=== PATIENT | female | born 1935 | race Caucasian/White ===

== ENCOUNTER 2016-03-27 03:31 | Inpatient (IN) | payer MEDICARE, OTHER ==
[2016-03-27] VITALS (18 sets, daily range): BP systolic 169–220; BP diastolic 62–116; PULSE 72–95; RESP 20–24; O2SAT 96–100
[~2016-03-27] VITALS: Ht 170.2 cm; Wt 84.2 kg
--- NOTE | 2016-03-27 03:29 | ED.REPORT ---
HPI-Stroke / CVA Mar 27, 2016 ED Provider: MD Joaquin This is a 80 year old female brought to the ED by EMS for change LOC that began 6 hours ago. Pt was found by her on the commode and was non-verbal, with right sided deficits. Last normal at 22:00. En route, GCS 13, blood pressure 104/78. History is limited due to patient condition. Code status: DNR Nursing Notes Stated Complaint: RIGHT SIDED WEAKNESS Nursing Notes Reviewed: Yes General Time Seen by Provider: 03:31 Chief Complaint Weakness Right-sided Hx Obtained From: Patient Arrived By: Ambulance Time last known well 22:00 Sudden in Onset?: Yes Symptom Duration: Since onset Progression Since Onset: Unchanged Pertinent Negative: Pt denies other symptoms Recent Healthcare: No recent doctor visit, No recent hospitalization Similar Sx Previous: No Risk Factors )( TPA Administration/Criteria Stroke Thrombolytic Therapy : TPA Administered Intravenously: No, not indicated Past Medical History Past Medical History Notes: DNR Ambulatory Status Independent Review of Systems Unable to Obtain ROS Patient condition (limited ) Constitutional: Denies: Chills, Fever Neurologic: Reports: Change LOC, Unable to speak, Weakness, Denies: Headache Complete sys rev & neg: except as marked. Physical Exam Initial Vital Signs Vital Signs (First) Date Time Temp Pulse Resp B/P Pulse Ox O2 Delivery O2 Flow Rate FiO2 03/27/16 03:45 37.1 88 21 181/116 99 Room Air 03/27/16 04:45 2.5 - Initial VS: Reviewed ENT: Mucous membranes moist, Conjunctiva normal, No scleral icterus Extremities: Vascular intact Skin: Warm, Dry, No cyanosis Psychiatric: Mood/affect normal, Behavior normal, Normal thought content General/Constitutional: Awake Head / Eyes: EOMI Neck: Supple, Full range of motion, No swelling, Non-tender, No carotid bruit Respiratory / Chest: Breath sounds NL, Breath sounds = bilat, No respiratory distress, No rales, No rhonchi, No wheezing Cardiovascular: Heart rate NL, Regular rhythm, Heart sounds NL, No murmurs, Peripheral circulation NL Neurologic: No motor deficits, No sensory deficits Mental Status: Positive: Somnolent (limited exam ) Interpretation & Diagnostics CT HEAD CONCLUSION:Intraparenchymal hemorrhage in the left temporoparietal region and with associated edema. There is some questionable focal hypodensity in the left cerebellum that could indicate changes of previous ischemia although subacute ischemia could appear similar. Mild cerebral/cerebellar atrophy and moderate chronic small vessel disease with no acute intracranial abnormality. Radiologist: Jovany Tenorio DO Lab Results Interpretation Result Diagram: 03/27/16 0401 03/27/16 0401 Test 03/27/16 04:01 03/27/16 05:25 White Blood Count 10.4th/mm3 (3.8-10.1) Red Blood Count 4.85mil/mm3 (3.90-5.20) Hemoglobin 13.8g/dL (12.0-15.6) Hematocrit 40.8% (35.0-46.0) Mean Corpuscular Volume 84.1fL (81-100) Mean Corpuscular Hemoglobin 28.5pg (27.0-35.0) Mean Corpuscular Hemoglobin Concent 33.8% (32.0-37.0) Red Cell Distribution Width 13.6% (12.3-15.4) Platelet Count 217bil/L (150-400) Neutrophils (%) (Auto) 81.9% (40-74) Lymphocytes (%) (Auto) 11.5% (14-46) Monocytes (%) (Auto) 4.4% (4-12) Eosinophils (%) (Auto) 1.7% (0-5) Basophils (%) (Auto) 0.2% (0-3) Prothrombin Time 10.7sec (8.1-12.5) Prothromb Time International Ratio 1.00ratio Activated Partial Thromboplast Time 26.6sec (22.8-33.0) Sodium Level 138mEq/L (134-144) Potassium Level 4.0mEq/L (3.5-5.2) Chloride Level 101mEq/L (97-108) Carbon Dioxide Level 23mmol/L (18-29) Blood Urea Nitrogen 13mg/dL (8-27) Creatinine 0.61mg/dL (0.57-1.00) Estimat Glomerular Filtration Rate 136mL/min (>59) Glucose Level 175mg/dL (60-99) Calcium Level 9.2mg/dL (8.5-10.1) Total Bilirubin 1.8mg/dL (0.0-1.2) Aspartate Amino Transf (AST/SGOT) 16U/L (0-50) Alanine Aminotransferase (ALT/SGPT) 14U/L (0-32) Alkaline Phosphatase 123U/L (25-165) Troponin T 0.010ug/L (0.0-0.011) Total Protein 7.6g/dL (6.4-8.4) Albumin 3.9g/dL (3.4-5.0) Lab values outside NL range: no clinical significance. ECG Interpretation ECG Interpretation: Minor non-specific ST changes Time: 05:02 Interpreted by: ED physician Normal ECG Interpretation: Normal rate Re-Eval/Medical Decision Med Decision/Clinical Course 72-year-old female presents after an apparent stroke, after being found on the toilet unable to speak and minimally responsive. She appeared to have some right-sided motor deficits and was transported by rescue. On arrival here, and the CT scan revealed left posterior parietal stroke bleeding variety, with some surrounding edema and a central mass. Accompanying the patient is a sign POLST form, requesting DO NOT RESUSCITATE status and allowing a natural . I contacted her , who is wheelchair-bound at home, and he confirms that is her wish. He will be able to come to the hospital later this afternoon. I advised him to notify family. She is admitted now with a left sided parenchymal bleed in the posteroparietal brain, diminished mental status, and mild right-sided deficits, but near complete aphasia. Blood pressure has been elevated and has responded initially to nicardipine, but she was switched to labetalol to avoid being on a constant drip and required ICU care. She was also given Keppra to prophylax against seizures. Transported in stable guarded condition. 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: Accepts admit Counseled Regarding: Diagnosis, Lab results, Need for follow-up, Need for admission Patient Discharge & Departure Impression: Primary Impression: Hemorrhagic stroke Additional Impression: Hypertension Disposition: ADMITTED TO HOSPITAL Discharge Condition All VS Reviewed: Yes Condition: Stable Crit Care Except Billable Proc Time Spent: 30-74 minutes Services Performed: Patient management by me, Time spent at bedside, Reviewing test results, Reviewing imaging, Discussing patient care, Documentation in record, Time with fam/surrogate Scribe Attestation Portions of this note were transcribed by Cornell Jean-Baptiste. I, Dr. Nuñez personally performed the history, physical exam and medical decision-making; I reviewed and confirmed the accuracy of the information in the transcribed note. Signed by: codey Holley. 03/26/2016, 03:30. Jonny Nuñez MD Mar 27, 2016 03:29 CORNELL JEAN-BAPTISTE Mar 27, 2016 03:32
[~2016-03-27 03:31] MED LIST: Ondansetron 2 mg/mL 2 mL Inj ONE
[2016-03-27] MEDS ORDERED: DEXTROSE 5% IV ONE (03:52)
[2016-03-27] MEDS ORDERED: NICARDIPINE IV ONE (03:52)
[2016-03-27 04:10] LABS: BASOPHILS % (AUTO) 0.2 % (0-3); EOSINOPHILS % (AUTO) 1.7 % (0-5); MONOCYTES % (AUTO) 4.4 % (4-12); Mean Corpuscular Hemoglobin 28.5 pg (27.0-35.0); Mean Corpuscular Volume 84.1 fL (81-100); NEUTROPHILS % (AUTO) 81.9 % (40-74); Platelet Count 217 bil/L (150-400)
[2016-03-27] MEDS ORDERED: levETIRAcetam Inj 1,000 MG in IV Premix 1 EACH IV ONE (04:30)
[2016-03-27 04:57] LABS: TROPONIN T 0.01 ug/L (0.0-0.011)
[2016-03-27] MEDS ORDERED: Polyethylene Glycol (PEG) 17 Gm Powder PO PRN (05:25)
[2016-03-27] MEDS ORDERED: Ondansetron 2 mg/mL 2 mL Inj IV PRN (05:25)
[2016-03-27] MEDS ORDERED: Alum-Mag Hydrox-Simeth 30 mL Suspension PO PRN (05:25)
[2016-03-27] MEDS ORDERED: Labetalol 5 mg/mL 4 mL Inj IVPUSH ONE (05:30)
[2016-03-27 06:56] LABS: APPEARANCE,URINE CLEAR (CLEAR,HAZY); COLOR,URINE YELLOW (YELLOW); PH,URINE 6.5 (5.0-8.0)
[2016-03-27 06:57] LABS: OCCULT BLOOD,URINE NEGATIVE (NEGATIVE); UROBILINOGEN,URINE NORMAL (NORMAL)
[2016-03-27] MEDS: Labetalol 5 mg/mL 4 mL Inj IVPUSH PRN ×6 (09:13→22:47)
--- NOTE | 2016-03-27 09:25 | DRSVH ---
PROCEDURE: X-RAY CHEST ONE VIEW, PORTABLE ([id number]) INDICATIONS: stroke TECHNIQUE: One view of the chest was acquired. COMPARISON: None. FINDINGS: Surgical changes and devices: None. Lungs and pleura: No pleural effusions or pneumothorax. Interstitium is prominent and mild edema castro spected. Mediastinum: Mediastinal contours appear normal. Heart size is enlarged. Bones and chest wall: No suspicious bony lesions. Overlying soft tissues appear unremarkable. IMPRESSION: Cardiomegaly and mild interstitial prominence suspicious for developing pulmonary edema. Correlate clinically. Dictated by: Charli Funes [facility] Interpreted: Yasemin Crenshaw MD on 03/27/2016 at 9:24 Transcribed by: RUTH on 03/27/2016 at 9:24 Approved by: Yasemin Crenshaw M.D. on 03/27/2016 at 13:37
--- NOTE | 2016-03-27 09:57 | DRSVH ---
PROCEDURE: CT BRAIN WITHOUT CONTRAST ([id number]) INDICATIONS: AMS TECHNIQUE: Noncontrast 4.5 mm thick angled axial sections acquired from the foramen magnum to the vertex, with c oronal reformats. COMPARISON: None. FINDINGS: Image quality: Excellent. CSF spaces: Basal cisterns are patent. No extra-axial fluid collections. The ventricles are symmet bhumika in size and shape. Brain: Acute hemorrhage with surrounding edema is noted in the right temporal-parietal lobes there is mild, approximately 3 mm of [id number] midline shift associated with the left temporal-parietal h ematoma. Old right parietal infarct is noted. Hypodensity noted in the left cerebral hemisphere may r epresent artifact versus a edema related to subacute infarct. Recommend MRI of the brain when clinica lly feasible. There is a small, approximately 0.7 x 0.7 x 0.6 cm left frontal, parafalcine, extra-axi al mass. There is cerebral volume loss for age, with resultant ventricular and sulcal prominence. Th ere are moderate periventricular and deep white matter chronic small vessel ischemic changes. There is intracranial internal carotid artery atherosclerosis. Skull and face: Calvarium and visualized facial bones appear intact, without suspicious lesions. Sinuses: Visualized sinuses and mastoids are clear. IMPRESSION: 1. Left temporal-parietal acute hematoma with surrounding vasogenic edema. There is approximately 3 m m of [id number] midline shift associated with the left temporal-parietal hemorrhage. 2. Hypodensity in the left cerebellar hemisphere compatible with artifact versus edema. Recommend MRI of the brain when clinically feasible. 3. Chronic, small, right parietal infarct. 4. Atherosclerosis. 5. Diffuse volume loss. 6. Periventricular and subcortical white matter chronic microvascular ischemic changes. 7. Approximately 7 mm in diameter left frontal, parafalcine extra-axial mass possibly representing a small meningioma. Recommend MRI of the brain for definitive characterization when clinically feasible . Dictated by: Megan Cunningham MD, PhD on 03/27/2016 at 9:55 Approved by: Megan Cunningham MD, PhD on 03/27/2016 at 9:55
--- NOTE | 2016-03-27 10:23 | PCM.CONPAL ---
Date of Service Mar 27, 2016 Date of Hospital Admission: Mar 27, 2016 at 05:44 Date of Palliative Consult: Mar 27, 2016 Requesting Provider: Марина Freeman DO Reason Palliative Care Consult: Goals of Care Discussion Reason for Consultation Palliative Care received verbal order from Dr Freeman 03/27/16 to assist with goals of care. Patient is a 80 year old woman who was admitted 03/27/16 for hemorrhagic stroke. Contact: Steven Ceja [phone] Hospital Unit @time of consult: Medical/Pediatric Care (room 3024) Palliative Care Recommendation Summary of palliative recommendations: Symptom management (Pain/other): per Attending. DPOA/Advanced Directives/POLST: 1. Code Status is: DNR/DNI per EMR. 2. Designated POA: presumptively would be Steven Ceja, in absence of any paperwork to the contrary. 3. Mr. Ceja ([phone]) will meet with Palliative Care Team's Dr. Graves and RUTHIE Melgar at 1430pm today () 4. There is a prior POLST, signed by Mrs. Ceja and her PCP, Milla Day MD on 02/01/16 that states: DNR. The rest of POLST is not completed. 5. After 03/27 FCTM, new POLST completed. See details below. Family/emotional support: 1. Keri's biological son, Long Masterson prefers home number: [phone], ( cell: [phone]). He lives 3 1/2 hours away in [place], [place]. Cell Service is spotty in his home. 2.Keri's biological daughter Sara Masterson, lives in [place], and is communicating with her brother on issues of her mother's health and function. Her cell number is: [phone] 3. Keri has another son, Driss, who is estranged her and rest of family, and family does not know his whereabouts. Family Care Team Meeting: Mr. Steven Ceja did not arrive at hospital for planned meeting at 1430h. We called him and he had gone to [facility]; he thought she was hospitalized there. We gave him directions to [facility]. He arrived at 15:30pm. Present were: Dr. Graves Steven Marcial (), Pt's Son Long and Daughter Sara on Speakerphone Per family interview: 1. Keri's baseline function prior to this stroke was excellent mentally with dyspnea on exertion and increased sedentary lifestyle. 2. Keri had chronic hypertension, but no known lung disease or heart disease. She and Steven have been 11 years. 3. About 6-7 years ago, she started to get more dyspnea with moving, and has been growing more sedentary subsequently. She was not on home oxygen, but she could not do housework "because she would run out of breath," says Steven. She had been sleeping almost upright in a recliner for years. 4. 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 5. Prior to this stroke, Keri was fully independent in all activities in daily living: she could wash, dress, cook simple meals, drive. She tended to eat small amounts of food continually throughout the day, that she prepared, says Steven. She could perform errands such as grocery shopping, banking, going to library and she loves to read, watch politics on TV and discuss current events with her and daughter, who calls her almost daily. 6. She had no symptoms of short term memory loss or cognitive impairment per her and daughter. Son Long talks to her less often and didn't express an opinion, but said that she is very intelligent throughout his past contacts with her. Palliative Plan for 03/28/15: 1. I recommend that medical team check in with Steven and son Long (who is driving in and will arrive by 10am or so) and give medical update and their prognosis for rehabilitation from this stroke. 2. If medical team feels that prognosis of patient is poor based on NIHSS, sequential physical exam, poor blood pressure control, etc., please inform family in detail. 3. If prognosis is indeterminate, I recommend that artificial nutrition be addressed initially with NGT placement, consider PEG in future depending on patient's clinical appearance in a few days. 4. If prognosis is poor, I recommend perhaps ST NGT feeding, but no permanent artificial nutrition and Palliative Care can assist family with understanding this. 4. Pall Care Provider will look for family tomorrow to help support and answer questions. Spiritual support: TBD Additional Medical Diagnoses with primary management by Hospitalist team include : Problems: End of Life Preferences POLST: 1. Prior POLST discussed with family, listed as DNR without other parts of form completed. 2. Family agreed to have Steven sign new, complete POLST today 03/27/16: DNR/DNI /please use all other interventions to try to reverse effects of this stroke but do NOT intubate or ventilate. They are fine with using antibiotics for any infection that develops They are fine with starting temporary NGT feedings for nutrition, and even a trial of permanent TFs if she shows signs that her mind can improve to near her prior baseline ("she has to be able to read books, at least, and be able to communicate with people, or she won't be happy," says the family) Original POLST of 02/01/16 was voided, new POLST 03/27/16 placed in paper chart with several copies for the family. Goals of Care Per Family, Keri's Quality of life preferences: 1. Keri is very intelligent at baseline, and if needs to be able to have a good mind that can interact with others, read, play with her pet dogs Nuazulet and Guadalupe. 2. Keri wouldn't mind if she were in a wheelchair, or needed more physical assistance to move around, but she would mind if other people had to toilet her. 3. Keri would put up with a speech deficit caused by a stroke, as long as she could communicate in writing/pointing/communication board. Disposition Likely will need skilled rehabilitation for physical deficits from stroke Resuscitation Status Resuscitation Status: DNR/DNI:Do Not Resuscitate/Intubate POLST Updates/Changes Previous POLST?: Yes POLST Last Review Date: Mar 27, 2016 Antibiotics: Use ABX if can Prolong Life Artificially Admin Nutrition: Trial Period Tube Feeding POLST Discussed with: Spouse/Other POLST Review Outcome: New Form Completed . Advanced Care Planning Address: POLST Pt History History of Present Illness This is a 80 year old female brought to the ED by EMS for change LOC that began 6 hours prior to admission in early a.m. hours of 03/27/16. Pt was found by her on the commode and was non-verbal, with right sided deficits. Last normal at 22:00h on 03/26/16. En route, GCS 13, blood pressure 104/78. History is limited due to patient condition. Code status: DNR Contact is :Steven Ceja [phone] Allergy Allergies Reviewed: Yes Medications Current Medications: Current Medications Labetalol HCl 20 mg Q10MIN PRN IVPUSH Last administered on 03/27/16t 09:13; Admin Dose 20 MG; Start 03/27/16 at 05:25 Al Hydrox/Mg Hydrox/Simethicone 30 ml Q6H PRN PO; Start 03/27/16 at 05:25; Status UNV Ondansetron HCl 4 to 8 mg Q4H PRN IV; Start 03/27/16 at 05:25; Status UNV Senna 17.2 mg BID PRN PO; Start 03/27/16 at 05:25; Status UNV Polyethylene Glycol 17 gm DAILY PRN PO; Start 03/27/16 at 05:25; Status UNV Hydromorphone HCl 1-2 mg as needed to cont... Q4H PRN IVPUSH; Start 03/27/16 at 07:55; Status UNV Objective Findings Exam Vital Sign - Last Date Time Temp Pulse Resp B/P Pulse Ox O2 Delivery O2 Flow Rate FiO2 03/27/16 09:26 Supplement Oxygen 03/27/16 09:22 86 20 178/87 96 2.00 03/27/16 08:45 36.9 General: Minimally responsive, Other (lifts up right shoulder, neck and right hand with sternal rub, eyes flutter.) HEENT: Other (pupils pinpoint (miosis), unable to open eyes completely, when eyelids retracted prominent left gaze preference) Heart: Normal S1, S2, No Murmurs/Rubs/Gallops Abdomen: Benign, Bowel Tones x4, Soft, Non Tender Neuro: Spontaneous Eye Opening (left gaze preference, unable to get her to turn eyes across midline), Speech (nonverbal), Weakness (right hemiparesis, moves left arm and leg spontaneously) Addtional Information CT HEAD IMPRESSION: 1. Left temporal-parietal acute hematoma with surrounding vasogenic edema. There is approximately 3 mm of [id number] midline shift associated with the left temporal-parietal hemorrhage. 2. Hypodensity in the left cerebellar hemisphere compatible with artifact versus edema. Recommend MRI of the brain when clinically feasible. 3. Chronic, small, right parietal infarct. 4. Atherosclerosis. 5. Diffuse volume loss. 6. Periventricular and subcortical white matter chronic microvascular ischemic changes. 7. Approximately 7 mm in diameter left frontal, parafalcine extra-axial mass possibly representing a small meningioma. Recommend MRI of the brain for definitive characterization when clinically feasible. CONCLUSION: Intraparenchymal hemorrhage in the left temporoparietal region and with associated edema. There is some questionable focal hypodensity in the left cerebellum that could indicate changes of previous ischemia although subacute ischemia could appear similar. Mild cerebral/cerebellar atrophy and moderate chronic small vessel disease with no acute intracranial abnormality. Radiologist: Jovany Tenorio DO Lab Results Interpretation Result Diagram: 03/27/16 0401 Time spent Total time 135 minutes; >50% face to face with patient and/or family, providing counselling regarding plans and recommendations, and in care coordination with his/her medical teams. Included in above time, I spent an additional 65 minutes counseling for advanced care planning with the patient/the patients family/the surrogate decision maker. copies to: Milla Day MD, Cynthia MD Mar 27, 2016 10:23
--- NOTE | 2016-03-27 10:23 | NUR ---
Palliative Care Palliative Care received verbal order from Dr Freeman 03/27/16 to assist with goals of care. Patient is a 80 year old woman who was admitted 03/27/16 for hemorrhagic stroke. Contact: Steven Ceja [phone] Palliative Care to follow. Criss Amin
--- NOTE | 2016-03-27 10:33 | NUR ---
Patient admission Patient is unable to speak. Patient admission was completed to the best the nurse was able to complete. Patient is poor historian.
--- NOTE | 2016-03-27 10:34 | NUR ---
Patient activity Patient is alert at times when spoken to. Patient is able to squeeze left hand when asked, but is slow to respond. Patient is able to move toes up and down when asked and when touched on the top or bottom of foot while saying up and down. Patient is on 2L supplemental oxygen via nasal canella. Patient remains flaccid on right side and unable to speak. Patient unable to follow command to stick tongue out or smile.
--- NOTE | 2016-03-27 11:37 | PCM.HPMED ---
Subjective Date of Service Mar 27, 2016 Primary Provider: Admitting Physician: Primary Care Physician: Sue Attending Physician: Admit Status: From the Emergency Department, Full Admit, Remote Telemetry History of Present Illness: Keri Ceja is a 80 year old female brought to the ED by EMS for change LOC that began 6 hours ago. Pt was found by her on the commode and was non-verbal, with right sided deficits. Last normal at 22:00. En route, GCS 13, blood pressure 104/78. History is limited due to patient condition. Code status: DNR Review of Systems: unable to be obtained Allergies Coded Allergies: Unable to Assess (Verified Allergy, Unknown, 03/27/16) Patient non-responsive and is poor hystorian. Home Medications data not available PMH Social History Hx Alcohol Use: No Hx Substance Use: No Hx Tobacco Use: No Living Arrangement: with Family (her ) Exam Vital Signs Vital Sign - Last Date Time Temp Pulse Resp B/P Pulse Ox O2 Delivery O2 Flow Rate FiO2 03/27/16 04:45 87 21 188/80 100 Nasal Cannula 2.5 03/27/16 03:45 37.1 Exam General: Awake answering only yes and no questions Eyes: PERRLA, Scleral Anicteric Mouth: Mouth Normal, Mucous Membranes Moist/[place] Neck: Supple, no Thyromegaly, trachea central. Chest & Lungs: Clear to auscultation & percussion, No adventitious breath sounds, no crackles, no wheeze Cardiovascular: Normal S1, Normal S2, No Murmurs/Rubs/Gallops, Regular Rate/ Rhythm, Murmur, Other (No JVD, no peripheral edema) Pulses: Radial (present and equal), Dorsalis Pedi (present and equal) Abdomen: Soft, Non-tender, Non-distended, Normoactive bowel tones. Musculoskeletal: Unremarkable. Normal range of motion, no swollen or erythematous joints Extremities: No edema, no cyanosis, no clubbing. Skin: No rashes. Warm and dry, no erythematous areas Neurological: Grossly neurologically intact, has generalized weakness, Normal Speech, Sensation Intact Lymphatic: Lymph nodes Cervical and Axillary not palpable. Mental Status: somnolent, is able to be aroused, minimally responsive, slurred speech Cranial nerves: PERRL. Extraocular movements are intact with no nystagmus. Visual cabrales are full to direct confrontation. The face is symmetric, tongue midline, doesn't open her mouth wide enough to see her soft palate Motor: Normal tone. She is able to hold both arms and legs up off the bed but does not participate in formal testing Sensation: Intact to light touch throughout Coordination: Doesn't participate Reflexes: 2 throughout, toes withdraw Gait: not tested Lab and Diagnostics Labs Laboratory Tests Test 03/27/16 04:01 White Blood Count 10.4th/mm3 (3.8-10.1) Red Blood Count 4.85mil/mm3 (3.90-5.20) Hemoglobin 13.8g/dL (12.0-15.6) Hematocrit 40.8% (35.0-46.0) Mean Corpuscular Volume 84.1fL (81-100) Mean Corpuscular Hemoglobin 28.5pg (27.0-35.0) Mean Corpuscular Hemoglobin Concent 33.8% (32.0-37.0) Red Cell Distribution Width 13.6% (12.3-15.4) Platelet Count 217bil/L (150-400) Neutrophils (%) (Auto) 81.9% (40-74) Lymphocytes (%) (Auto) 11.5% (14-46) Monocytes (%) (Auto) 4.4% (4-12) Eosinophils (%) (Auto) 1.7% (0-5) Basophils (%) (Auto) 0.2% (0-3) Prothrombin Time 10.7sec (8.1-12.5) Prothromb Time International Ratio 1.00ratio Activated Partial Thromboplast Time 26.6sec (22.8-33.0) Sodium Level 138mEq/L (134-144) Potassium Level 4.0mEq/L (3.5-5.2) Chloride Level 101mEq/L (97-108) Carbon Dioxide Level 23mmol/L (18-29) Blood Urea Nitrogen 13mg/dL (8-27) Creatinine 0.61mg/dL (0.57-1.00) Estimat Glomerular Filtration Rate 136mL/min (>59) Glucose Level 175mg/dL (60-99) Calcium Level 9.2mg/dL (8.5-10.1) Total Bilirubin 1.8mg/dL (0.0-1.2) Aspartate Amino Transf (AST/SGOT) 16U/L (0-50) Alanine Aminotransferase (ALT/SGPT) 14U/L (0-32) Alkaline Phosphatase 123U/L (25-165) Troponin T 0.010ug/L (0.0-0.011) Total Protein 7.6g/dL (6.4-8.4) Albumin 3.9g/dL (3.4-5.0) Result Diagram: 03/27/1640003/27/16400 X-Rays, CTs and MRIs CT HEAD CONCLUSION:Intraparenchymal hemorrhage in the left temporoparietal region and with associated edema. There is some questionable focal hypodensity in the left cerebellum that could indicate changes of previous ischemia although subacute ischemia could appear similar. Mild cerebral/cerebellar atrophy and moderate chronic small vessel disease with no acute intracranial abnormality. Radiologist: Jovany Tenorio, DO Assessment & Plan 1. Acute Intraparenchymal hemorrhage in the left temporoparietal region and with associated edema. Present on admission - nothing by mouth - control Hypertension - perhaps consult with Palliative Care and Neurology 2. Hypertensive Crisis. Present on admission - Acetaminophen as needed for mild pain/fever/headache - Bowel regimen as needed - Antiemetic as needed Patient admitted under inpatient status with expected length of stay > 2 midnights for severity of present symptoms, complexities of treatment plan and risk for adverse event . VTE Mechanical Devices: Intermittant Pneumatic CD Resuscitation Status: DNR/DNI:Do Not Resuscitate/Intubate Germán Gonzales MD Mar 27, 2016 05:34 Reina Graevs MD Mar 27, 2016 11:37
--- NOTE | 2016-03-27 11:42 | NUR ---
Admit Patient was admitted to room 3024 on [facility] at 0600 per charge nurse. Patient was assessed upon begging of day shift. Patient was able to squeeze left hand when asked, but is weak and needed extra encouragement for her to follow instruction. Patient able to lift toes up and down when touched on top of foot and said to lift toes up and when touched on bottom of foot and told to push toes down. Patient unable to open mouth, smile, stick out tongue, open eyes on command, or move right side of body. Right pupil reacted to light and dilated but left eye was slow to respond. Patient bed alarm on and head at 30 degrees. Patient given call light and explained what it is for. Patient unable to use call light and checked on frequently. Patient has Muñiz catheter in place and draining to gravity.
--- NOTE | 2016-03-27 11:45 | NUR ---
PT NOTE-- Per MD at rounds patient is comfort care with Hospice to consult. Discontinue rehab orders.
--- NOTE | 2016-03-27 12:16 | NUR ---
SON CONTACT INFO Patient son called today. Patient son name is Long Masterson. Home phone number is . Cell phone is . Son said staff is more than welcome to call and ask about health care questions on patient.
--- NOTE | 2016-03-27 14:38 | NUR ---
Nausea Nurse went to check in on patient. Patient was dry heaving. Nurse sat patient head up to 75 degrees and went to med room to get Zofran from [facility]. Patient was administered 8mg of Zofran. Medication was effective.
--- NOTE | 2016-03-27 14:57 | NUR ---
Palliative care note D/A: Pt is a new admit after having what appears to be a stroke. Request for PC consult this am from Dr. Freeman. Pt spouse is Steven Ceja, cell [phone]. Phone call to pt spouse Steven to set up meeting when arrives, with palliative care. Steven, pt spouse, indicates he will arrive about 1400. He notes that he is wheelchair dependent and also has two dogs to take care of prior to his arrival. This worker later discusses with pt son Long Masterson ( h [phone] and c [phone]) who also discusses with Dr. Graves. Long lives in [place]. Note also that pt has a dtr who lives in [place] who is aware of pt status. Pt dtr is Beverly Masterson who can be reached at [phone]. There is another son who is estranged from the family. Note that pt spouse did not arrive for the meeting. Speak to him at 1430 and he notes that he went to the wrong facility as he initially was told that pt was being taken to [facility] in [place]. Steven went to [place] and found that pt was not there and is now on his way into [facility]. This worker called him back to give directions and Steven indicates that he will use his cell phone to find directions. Dr. Graves has called pt son Steven to alert him to later conference time. Dr. Graves will try to meet with spouse when he arrives. P: Palliative care to continue to follow. Hailee CROWELL, [facility]
--- NOTE | 2016-03-27 18:03 | PCM.PNMED ---
Subjective Date of Service Mar 27, 2016 Subjective Keri is a 80yo female with a hx of COPD, based on records received from [facility], who was brought to [facility] via EMS after she was found to have had a loss of consciousness and unable to use her right side. She is nonverbal today and minimally capable of cooperating. There is no family present to provide history. Exam Vital Signs Vital Sign - Last Date Time Temp Pulse Resp B/P Pulse Ox O2 Delivery O2 Flow Rate FiO2 03/27/16 16:17 72 22 172/82 96 Nasal Cannula 2.00 03/27/16 16:02 37.7 Exam General: No acute distress, well-developed, well-nourished, opens her eyes periodically to command. Nonverbal and unable to cooperate with physical examination aside from squeezing her left hand. HEENT: Normocephalic, atraumatic. External ears without defect. Eyes with left lateral gaze, unable to alter gaze. Blinks. Neck: Supple. No jugular venous distension. Cardiovascular: Regular rate and rhythm without murmurs, rubs, or gallops appreciated Pulmonary: No crackles, wheezes, or rhonchi, however, she does not take deep breaths. Normal respiratory effort with no use of accessory muscles. Abdomen: Normoactive bowel tones. Soft, nondistended. : Muñiz catheter in place draining translucent yellow urine Extremities: No clubbing, cyanosis, or edema. Skin: Normal temperature, turgor, and texture; no rash. Neurological: Normal muscle tone and bulk. Positive Babinski on the right. Does not move the right lower or upper extremities at all to command or spontaneously. Moves the left leg spontaneously. Unable to lift her left upper extremity off the bed. 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 Lab and Diagnostics Result Diagram: 03/27/161 03/27/16 0401 X-Rays, CTs and MRIs CT HEAD CONCLUSION:Intraparenchymal hemorrhage in the left temporoparietal region and with associated edema. There is some questionable focal hypodensity in the left cerebellum that could indicate changes of previous ischemia although subacute ischemia could appear similar. Mild cerebral/cerebellar atrophy and moderate chronic small vessel disease with no acute intracranial abnormality. Radiologist: Jovany Tenorio, DO Assessment & Plan Keri is a 80yo female who was brought to [facility] abnormal neurological status. Per discussion with her PCP, she is DNR/DNI. Her has dementia and is unable to provide history. She has been admitted with an intraparenchymal hemorrhage 1. Acute Intraparenchymal hemorrhage in the left temporoparietal region and with associated edema. Present on admission - NPO - Control Hypertension - Palliative care has consulted, their expertise is appreciated - No procedural interventions at this time - Reevaluate neurological status 2. Hypertensive Crisis. Present on admission, improved - Labetalol 20mg IV push [id number] PRN - Continue to monitor - Acetaminophen IV PRN for pain orfever - Ondansetron IV PRN . VTE Mechanical Devices: Intermittant Pneumatic CD Resuscitation Status: DNR/DNI:Do Not Resuscitate/Intubate (per POLST) Time spent 45 minutes Attending Statement I have seen and evaluated patient at bedside and directly supervised in the care provided by resident physician. I agree with above documentation. I have talked directly with patient PCP who assisted in the completion of POLST form by patient. Dr. Day was in agreement that care thus far has been provided accordance with patients wishes. Will continue to evaluate patient continue, provide intervention and evaluation ad appropriate. And make further decisions on management based on patient condition. Марина Freeman DO Mar 27, 2016 18:03 Michael Nino DO Mar 28, 2016 13:36
--- NOTE | 2016-03-27 19:26 | PCM.HPMED ---
Subjective Date of Service Mar 27, 2016 Primary Provider: Admitting Physician: Germán Gonzales MD Primary Care Physician: Nopcuco Attending Physician: Germán Gonzales MD Chief Complaint: AMS History of Present Illness: Keri is a 80yo female who was brought to [facility] abnormal neurological status. Per records, patient was was found slumped over toilet shortly around 10pm yesterday. states mentation changed with right sided weakness, thus activated EMS. can only give limited history due to himself, suspected to have dementia. A POLST form filed and copy brought to the ED which states DO NOT RESUSCITATE. On arrival, patient was mentally altered with R sided weakness, unable to follow commands. BP found to be significantly high in the 220's. CT-brain showed a left temporal/parietal acute hematoma with [id number] midline shift. Patient was initially placed on nicardipine drip however, changed to labetalol. Per her wish, as filed by [facility], was to be made comfort. A call to PCP verified this. Review of Systems: Unable to obtain due to patient status as mentioned above. Allergies Coded Allergies: Unable to Assess (Verified Allergy, Unknown, 03/27/16) Patient non-responsive and is poor hystorian. Home Medications Limited history due to patient's condition. PMH Atherosclerosis HTN COPD Surgical History Limited history due to patient's condition. Family History Limited history due to patient's condition. Social History Hx Alcohol Use: No Hx Substance Use: No Hx Tobacco Use: No Smoking Status: Unknown if Ever Smoker Living Arrangement: with Family (her ) Exam Vital Signs Vital Sign - Last Date Time Temp Pulse Resp B/P Pulse Ox O2 Delivery O2 Flow Rate FiO2 03/27/16 18:25 86 03/27/16 16:17 22 172/82 96 Nasal Cannula 2.00 03/27/16 16:02 37.7 Exam Gen: Resting comfortably, HEENT: Normocephalic, atraumatic. PERRLA, Conjunctiva normal, No scleral icterus Neck: Ssupple, no JVD Cardio: Regular rate and rhythm with no murmurs, rubs, or gallops appreciated Pulm: b/l air sound. No crackles, wheezes, or rhonchi. Abd: Soft, nontender, non distended, + bowel sound. Extremities: No clubbing, cyanosis,or edema Skin: Normal temperature, turgor, and texture; no rash, ulcers, or subcutaneous nodules appreciated. Neuro: Joni coma score 10: eyes open on commands and withdraw from pain. non verbal. Left gaze preferences, Babinski + Right side. Motor strength absent on right. Weak Left side. Psyc: Somnolency. Lab and Diagnostics Result Diagram: 03/27/1640003/27/161 X-Rays, CTs and MRIs PROCEDURE: CT BRAIN WITHOUT CONTRAST INDICATIONS: AMS IMPRESSION: 1. Left temporal-parietal acute hematoma with surrounding vasogenic edema. There is approximately 3 mm of [id number] midline shift associated with the left temporal-parietal hemorrhage. 2. Hypodensity in the left cerebellar hemisphere compatible with artifact versus edema. Recommend MRI of the brain when clinically feasible. 3. Chronic, small, right parietal infarct. 4. Atherosclerosis. 5. Diffuse volume loss. 6. Periventricular and subcortical white matter chronic microvascular ischemic changes. 7. Approximately 7 mm in diameter left frontal, parafalcine extra-axial mass possibly representing a small meningioma. Recommend MRI of the brain for definitive characterization when clinically feasible. Dictated by: Megan Cunningham MD, PhD on 03/27/2016 at 9:55 Assessment & Plan Keri is a 80yo female who was brought to [facility] abnormal neurological status, admitted for an intraparenchymal hemorrhage 1. Acute Intraparenchymal hemorrhage in the left temporoparietal region and with associated edema. Present on admission - NPO - Control Hypertension, seizure prophylaxis with Keppra - Palliative care has consulted, their expertise is appreciated - No procedural interventions at this time - Reevaluate neurological status 2. Hypertensive Crisis. Present on admission, improved - Labetalol 20mg IV push [id number] PRN - Maintain SBP <160 or MAP <110 - Continue to monitor 3. Arthrosclerosis, present on admission, active - Will hold off atorvastatin as patient transition to comfort care. 4. Mild leukocytosis, present on admission,active - Likely stressed induced. Concerns for aspiration. - Though, holding off antibiotics per wish. - Acetaminophen IV PRN for pain orfever - Ondansetron IV PRN VTE Mechanical Devices: Intermittant Pneumatic CD Resuscitation Status: DNR/DNI:Do Not Resuscitate/Intubate (per POLST) Attending Statement The patient was seen and examined together with Dr. Santa on 03/27 and I agree with the history, exam and plan as outlined in the note above. Reymundo Santa DO Mar 27, 2016 19:26 Germán Gonzales MD Mar 29, 2016 19:04
[2016-03-27] MEDS: 0.9% Sodium Chloride 1,000 ML IV SCH (20:12)
[2016-03-27] MEDS ORDERED: Acetaminophen IV 1,000 MG in IV Premix 1 EACH IV PRN (21:15)
[2016-03-28] VITALS (24 sets, daily range): BP systolic 140–202; BP diastolic 81–123; PULSE 83–145; RESP 18–24; O2SAT 94–96
[2016-03-28] MEDS: Labetalol 5 mg/mL 4 mL Inj IVPUSH PRN ×4 (01:08→23:02)
[2016-03-28] MEDS: 0.9% Sodium Chloride 1,000 ML IV SCH ×2 (05:58→17:06)
--- NOTE | 2016-03-28 06:36 | NUR ---
neuro: pt. nonverbal, minimally opening eyes, can move and squeeze left hand, right hand remains flacid. Pt. can push on my hand with both feet, Pt. npo, normal saline started at 100cc/hr. pt's bp remains elevated systolic 195, labetolol only brought down to 191.
--- NOTE | 2016-03-28 08:11 | NUR ---
Tele Per desk monitor at approx 0755 patient was sinus 80-90's with multiple PAC's. This RN was then notified at 0800 of HR of 130's sustaining. BP on R arm 163/103. BP on L arm 176/96. Cook page sent to to request guidance on IV push Labetalol. Patient continues to be nonverbal. Does rub hand occasionally yet difficult to assess if in response to question. Addendum: 03/28/16 at 0825 by JOSE DOUGLAS RN MD notified. Orders received for STAT EKG and to give Labetalol. Pharmacy contacted and no Labetalol available. notified and order changed to IV Hydralazine.
[2016-03-28] MEDS ORDERED: hydrALAZINE 20 mg/mL Inj IV PRN (08:25)
[2016-03-28] MEDS: MeTOProlol 1 mg/mL 5 mL Inj IVPUSH PRN ×2 (08:56→21:33)
--- NOTE | 2016-03-28 08:58 | NUR ---
Hypertension BP at start of IV Metoprolol push: 899 179/94 R arm with pulse of 130-140 Addendum: 03/28/16 at 0904 by JOSE DOUGLAS RN 902 175/110 R arm with pulse of 141 Addendum: 03/28/16 at 0908 by JOSE DOUGLAS RN 906 168/107 R arm with pulse of 134
--- NOTE | 2016-03-28 11:11 | DRSVH ---
PROCEDURE: CT BRAIN WITHOUT CONTRAST ([id number]) INDICATIONS: evaluate hemorrhage TECHNIQUE: Noncontrast 4.5 mm thick angled axial sections acquired from the foramen magnum to the vertex, with c oronal reformats. COMPARISON: [facility], CT, CT BRAIN WO GETACHEW, 03/27/2016, 3:39. FINDINGS: Image quality: Excellent. CSF spaces: Basal cisterns are patent. There is a new, small amount of hemorrhage within the occipit al horn of the right lateral ventricle, the 3rd ventricle, as well as within the 4th ventricle bilate rally. There is increased compression of the occipital horn and body of the left lateral ventricle, a s well as the 3rd ventricle. The small parafalcine high density focus within the left anterior fronta l region is unchanged, consistent with a meningioma. Brain: Left temporal parietal hemorrhage has moderately increased in size, with a current maximal AP diameter of roughly 56 mm. There is moderate surrounding low density, consistent with vasogenic ewa a, which has increased. There is consequently increased rightward midline shift, measured at roughly 8 mm. Chronic right parietal infarct is unchanged. Left cerebellar hypodensity is unchanged. Monge-whi te matter interface is normal. Skull and face: Calvarium and visualized facial bones are intact, without suspicious lesions. Sinuses: Visualized sinuses and mastoids are clear. IMPRESSION: 1. Increased left temporoparietal hemorrhage, with increased surrounding vasogenic edema. There is c onsequently increased mass effect upon the ventricles as described above, and increased, roughly 8 mm of rightward midline shift. 2. New intraventricular hemorrhage. 3. No change in left cerebellar low density focus, which could be further assessed by MRI, if clinica lly indicated. 4. No change in small left frontal parafalcine high density focus, consistent with a meningioma. 5. Findings discussed with Dr. Freeman on 03.28.16 at 1108 hrs. Dictated by: Gaurav Hinson M.D. on 03/28/2016 at 11:10 Approved by: Gaurav Hinson M.D. on 03/28/2016 at 11:10
[2016-03-28] MEDS: Labetalol 5 mg/mL 20 mL Inj IVPUSH PRN ×4 (11:15→17:45)
--- NOTE | 2016-03-28 11:17 | NUR ---
HTN IV Labetalol started. BP R arm 169/104 with pulse of 138
--- NOTE | 2016-03-28 14:47 | NUR ---
Social Work-initial assessment: Data:See initial assessment. Pt is a 80 y/o female who was admitted on 03/27/16 for hemorrhagic stroke per H&P. Pt's insurance is listed as self pay and PCP is Dr. Pagan.EMR Reviewed. RUTHIE met with pt and son Long [phone] or [phone] to discuss discharge planning, SW role explained. Pt resides at home with her where she remains independent with ADLs. Pt drives and does not use any DME. Pt has no HH Or SNF history. Pt has no medical terminologist care or VA benefits. SW discussed DPOA/advanced directive with son, he does not believe they have completed this. SW asked son about insurance and he states he has this. SW asked UR specialist Lee Ann to look into this with insurance verification. Palliative care to meet with family to discuss goals of care. SW to follow up after this. SW provided phone number on board in room. SW will continue to follow. Assessment:Pt who is independent at baseline. Plan:RUTHIE to follow up again post palliative care discussion with pt and family. SW will continue to follow. DYLAN Mejía Addendum: 03/28/16 at 1451 by NADIA ADAMS SS Amended: Links added. Addendum: 03/29/16 at 1240 by NADIA AZUL Correction: son's phone h [phone] and c [phone] Nadia Adams,DYLAN
--- NOTE | 2016-03-28 16:01 | NUR ---
Palliative care note Son to call PC on 03/29/16 am with time for conference call with PC team and himself and his sister. Hailee CARROLL, CCM
--- NOTE | 2016-03-28 17:22 | NUR ---
Neuro Patient continues to be non responsive. Does not make any purposeful movements. Did open eyes x 2 with loud noise. Hypertensive requiring PRN IV push Labetalol. See VSS and Emar. Placed on P500 bed due to skin protocal.
--- NOTE | 2016-03-28 17:56 | PCM.PNPALL ---
Date of Service Mar 28, 2016 Date of Hospital Admission: Mar 27, 2016 at 05:44 Date of Palliative Consult: Mar 27, 2016 Palliative Care Recommendation Summary of palliative recommendations: Symptom management (Pain/other): per Attending. DPOA/Advanced Directives/POLST: 1. Code Status is: DNR/DNI per EMR. 2. Designated POA: presumptively would be Steven Ceja, in absence of any paperwork to the contrary. 3. Mr. Ceja ([phone]) will meet with Palliative Care Team's Dr. Graves and RUTHIE Melgar at 1430pm today () 4. There is a prior POLST, signed by Mrs. Ceja and her PCP, Milla Day MD on 02/01/16 that states: DNR. The rest of POLST is not completed. 5. After 03/27 FCTM, new POLST completed. See details below. Family/emotional support: 1. Keri's biological son, Long Masterson prefers home number: [phone], ( cell: [phone]). He lives 3 1/2 hours away in [place], [place]. Cell Service is spotty in his home. 2.Keri's biological daughter Sara Masterson, lives in [place], and is communicating with her brother on issues of her mother's health and function. Her cell number is: [phone] 3. Keri has another son, Driss, who is estranged her and rest of family, and family does not know his whereabouts. Family Care Team Meeting: Mr. Steven Ceja did not arrive at hospital for planned meeting at 1430h. We called him and he had gone to [facility]; he thought she was hospitalized there. We gave him directions to [facility]. He arrived at 15:30pm. Present were: Dr. Graves Steven Ceja (), Pt's Son Long and Daughter Sara on Speakerphone Per family interview: 1. Keri's baseline function prior to this stroke was excellent mentally with dyspnea on exertion and increased sedentary lifestyle. 2. Keri had chronic hypertension, but no known lung disease or heart disease. She and Steven have been 11 years. 3. About 6-7 years ago, she started to get more dyspnea with moving, and has been growing more sedentary subsequently. She was not on home oxygen, but she could not do housework "because she would run out of breath," says Steven. She had been sleeping almost upright in a recliner for years. 4. 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 5. Prior to this stroke, Keri was fully independent in all activities in daily living: she could wash, dress, cook simple meals, drive. She tended to eat small amounts of food continually throughout the day, that she prepared, says Steven. She could perform errands such as grocery shopping, banking, going to library and she loves to read, watch politics on TV and discuss current events with her and daughter, who calls her almost daily. 6. She had no symptoms of short term memory loss or cognitive impairment per her and daughter. Son Long talks to her less often and didn't express an opinion, but said that she is very intelligent throughout his past contacts with her. Palliative Plan for 03/28/15: 1. I recommend that medical team check in with Steven and son Long (who is driving in and will arrive by 10am or so) and give medical update and their prognosis for rehabilitation from this stroke. 2. If medical team feels that prognosis of patient is poor based on NIHSS, sequential physical exam, poor blood pressure control, etc., please inform family in detail. 3. If prognosis is indeterminate, I recommend that artificial nutrition be addressed initially with NGT placement, consider PEG in future depending on patient's clinical appearance in a few days. 4. If prognosis is poor, I recommend perhaps ST NGT feeding, but no permanent artificial nutrition and Palliative Care can assist family with understanding this. 4. Pall Care Provider will look for family tomorrow to help support and answer questions. Spiritual support: TBD Additional Medical Diagnoses with primary management by Hospitalist team include : Problems: End of Life Preferences POLST: 1. Prior POLST discussed with family, listed as DNR without other parts of form completed. 2. Family agreed to have Steven sign new, complete POLST today 03/27/16: DNR/DNI /please use all other interventions to try to reverse effects of this stroke but do NOT intubate or ventilate. They are fine with using antibiotics for any infection that develops They are fine with starting temporary NGT feedings for nutrition, and even a trial of permanent TFs if she shows signs that her mind can improve to near her prior baseline ("she has to be able to read books, at least, and be able to communicate with people, or she won't be happy," says the family) Original POLST of 02/01/16 was voided, new POLST 03/27/16 placed in paper chart with several copies for the family. Goals of Care Per Family, Keri's Quality of life preferences: 1. Keri is very intelligent at baseline, and if needs to be able to have a good mind that can interact with others, read, play with her pet dogs Nugget and Guadalupe. 2. Keri wouldn't mind if she were in a wheelchair, or needed more physical assistance to move around, but she would mind if other people had to toilet her. 3. Keri would put up with a speech deficit caused by a stroke, as long as she could communicate in writing/pointing/communication board. Disposition Likely will need skilled rehabilitation for physical deficits from stroke Resuscitation Status Resuscitation Status: DNR/DNI:Do Not Resuscitate/Intubate (per POLST) POLST Updates/Changes Previous POLST?: Yes POLST Last Review Date: Mar 27, 2016 Antibiotics: Use ABX if can Prolong Life Artificially Admin Nutrition: Trial Period Tube Feeding POLST Discussed with: Spouse/Other POLST Review Outcome: New Form Completed Palliative Subjective Palliative Care Daily Responde: Patient, Family/Proxy, Team Brief History 80 yo with hx of AMS and R sided weakness noted by her who found her on toilet. Prior to that no apparent problems and good general health. She had had discussion with her PCP Dr. Milla Day in January and completed POLST as no CPR. It was not delineated on the form but apparently had fair discussion on this with defining not feeding tube etc. Patient/Family Concerns Concern for ability to communicate, read, "consciousness" Subjective Pt is not communicative. Does move her L arm spontaneously. Does not follow command. Occasionally strokes her head. Earlier was able to stroke her own dog but not since this afternoon-- no response. Objective Findings Exam Vital Sign - Last Date Time Temp Pulse Resp B/P Pulse Ox O2 Delivery O2 Flow Rate FiO2 03/28/16 17:21 37.9 127 22 153/102 94 Room Air 03/28/16 00:50 2.00 Intake and Output 03/27/16 03/27/16 03/28/16 Cumulative From/Thru 15:00 23:00 07:00 03/27/16 03:45 - 03/28/16 06:31 Intake Total 45 ml 1026 ml 1071 ml Output Total 650 ml 450 ml 1100 ml Balance -605 ml 576 ml -29 ml Intake Oral 0 ml 0 ml 0 ml IV Total 45 ml 1026 ml 1071 ml Output Urine Total 650 ml 450 ml 1100 ml Objective BP ranging 150-175/ HR has popped to 130-140--afib General: Minimally responsive, Other (lifts up right shoulder, neck and right hand with sternal rub, eyes flutter.) HEENT: Other (pupils pinpoint (miosis), unable to open eyes completely, when eyelids retracted prominent left gaze preference) Heart: Normal S1, S2, No Murmurs/Rubs/Gallops Abdomen: Benign, Bowel Tones x4, Soft, Non Tender Neuro: Spontaneous Eye Opening (left gaze preference, unable to get her to turn eyes across midline), Speech (nonverbal), Weakness (right hemiparesis, moves left arm and leg spontaneously) Lab/Diagnostics Lab and Imaging results reviewed in detail in EMR. Repeat CT notes progression of bleed slightly and area of new lesion and hemorrhage to occipital-may be evidence of bleed into ischemic area from yesterday Patient/Family Conference Members Present Family Members Present Son Long Masterson ([phone] home and cell [phone]) and daughter Beverly Masterson [phone] by speaker phone from [place] Medical Team Members Present? [facility] Discussion/Goals of Care Family conference 03/28/16 Reviewed severity of illness, prognosis of significant deficit and need of long term care phlebotomist care to follow. Reviewed challenge of knowing how severe the deficit but based on bleed- would expect substantial. Daughter had discussed the DNR/DNI request and the completion of the POLST and had communicated she wanted her son to take her dog if something happened and this was end of January. she had not gone into specifics with her daughter re feeding tubes QOL limits etc. According to her son-she was in the process of getting legal help to divorce her . He described them as estranged within their relationship. Son also defined he was a bit estranged and most communication was between pt and her daughter. They are considering the question of a temporary feeding tube if she is not able to eat. son is concerned based on the severity of the obtundation if she will not recover significantly-as to quality of life. Still processing this and not ready to have a "final" decision made re FT/QOL etc. Reviewed poor prognosis at this time of having a significant recovery. Family not quite able to understand the consequence of that. Reviewed with dr. Ernesto Nino who is also pessimistic re recovery. family is not ready to make decision re feeding tube and is leaning toward NG tube for time. Will review again by conference call. Will also attempt to speak with her tomorrow since he remains DPOAHC due to not other known paperwork They do agree re DNR/DNI Time spent Total time [60 ] minutes; >50% face to face with patient and/or family, providing counselling regarding plans and recommendations, and in care coordination with his/her medical teams. family conference and coordination of care I also spent an additional [ ] minutes counseling for advanced care planning with the patient/the patients family/the surrogate decision maker. copies to: Milla Day MD, Priyanka Gaona MD Mar 28, 2016 17:56
--- NOTE | 2016-03-28 20:06 | PCM.PNMED ---
Subjective Date of Service Mar 28, 2016 Subjective Keri remains nonverbal and obtunded this morning. Her son, Long Masterson was bedside much of the morning. Exam Vital Signs Vital Sign - Last Date Time Temp Pulse Resp B/P Pulse Ox O2 Delivery O2 Flow Rate FiO2 03/28/16 18:08 139 175/81 03/28/16 17:21 37.9 22 94 Room Air 03/28/16 00:50 2.00 Intake and Output 03/27/16 03/27/16 03/28/16 Cumulative From/Thru 15:00 23:00 07:00 03/27/16 03:45 - 03/28/16 06:31 Intake Total 45 ml 1026 ml 1071 ml Output Total 650 ml 450 ml 1100 ml Balance -605 ml 576 ml -29 ml Intake Oral 0 ml 0 ml 0 ml IV Total 45 ml 1026 ml 1071 ml Output Urine Total 650 ml 450 ml 1100 ml Exam General: Well-nourished, not opening her eyes spontaneously or to command. Nonverbal and unable to cooperate with physical examination. Brought her left hand to her chest spontaneously this morning. HEENT: Normocephalic, atraumatic. External ears without defect. Eyes with left lateral gaze, unable to alter gaze. PERRLA. Neck: Supple. No jugular venous distension. Cardiovascular: Irregularly irregular without murmurs, rubs, or gallops appreciated Pulmonary: No crackles, wheezes, or rhonchi, however, she does not take deep breaths. Normal respiratory effort with no use of accessory muscles. Abdomen: Normoactive bowel tones. Soft, nondistended. : Muñiz catheter in place draining translucent yellow urine Extremities: No clubbing, cyanosis, or edema. Skin: Normal temperature, turgor, and texture; no rash. Neurological: Normal muscle tone and bulk. Positive Babinski on the right. Does not move the right lower at all to command or spontaneously. Flaccid right upper extremity. Moves the left leg spontaneously. Lab and Diagnostics Result Diagram: 03/27/16 0401 03/27/16 0401 X-Rays, CTs and MRIs PROCEDURE: CT BRAIN WITHOUT CONTRAST 03/28/16: IMPRESSION: 1. Increased left temporoparietal hemorrhage, with increased surrounding vasogenic edema. There is consequently increased mass effect upon the ventricles as described above, and increased, roughly 8 mm of rightward midline shift. 2. New intraventricular hemorrhage. 3. No change in left cerebellar low density focus, which could be further assessed by MRI, if clinically indicated. 4. No change in small left frontal parafalcine high density focus, consistent with a meningioma. 5. Findings discussed with Dr. Freeman on 03.28.16 at 1108 hrs. Dictated by: Gaurav Hinson M.D. on 03/28/2016 at 11:10 Assessment & Plan Keri is a 80yo female who was brought to [facility] abnormal neurological status, admitted for an intraparenchymal hemorrhage which on repeat CT is worse, suspect this worsening occurred during the first several hours after initial presentation 1. Acute Intraparenchymal hemorrhage in the left temporoparietal region and with associated edema. Present on admission - Unfortunately her prognosis is poor which was discussed with the patient's son via the palliative care team - Continue NPO status - Control Hypertension with Labetalol IV to maintain her systolic blood pressure 150-180mmHg - Seizure prophylaxis with Keppra - Palliative care has consulted, their continued expertise is appreciated - Reevaluate neurological status 2. Hypertensive Crisis. Present on admission, improved - Labetalol 20mg IV push [id number] PRN - Blood pressure goal as above - Continue to monitor 3. Arthrosclerosis, present on admission, active - Will hold off atorvastatin at this time 4. Mild leukocytosis, present on admission,active - Likely stressed induced. Concerns for aspiration. - May prescribed antibiotics if this appears to be pneumonia and that is what her family wishes for her - Acetaminophen IV PRN for pain orfever - Ondansetron IV PRN VTE Mechanical Devices: Intermittant Pneumatic CD Resuscitation Status: DNR/DNI:Do Not Resuscitate/Intubate (per POLST) Time spent 35 minutes Attending Statement I have seen and evaluated patient at bedside in addition to directly supervising care provided by resident physician. I agree with above documentation. I have reviewed CT findings, and give patient's clinical decline through early hospitalization in ER and then on medical floor, followed by relative stabilization without further deterioration as of the morning of 03/27. As such , given the time CT was taken in ER on evening of 03/26, i anticipate much of the progressive changes noted on CT occurred earlier in the morning on 03/27 and then bleeding halted.. Give pts medical condition has not continue to deteriorate, neurologic deficits are fixed, i believe this is evidence the bleeding has ceased. Again, pt's prognosis is very poor, continue to appreciate input provided by palliative care team. Марина Freeman DO Mar 28, 2016 20:06 Michael Nino DO Mar 29, 2016 08:18
[2016-03-28] MEDS: HYDROmorphone 1 mg/mL Inj IVPUSH PRN (22:53)
[2016-03-29] VITALS (24 sets, daily range): BP systolic 151–210; BP diastolic 66–117; PULSE 88–120; RESP 18–24; O2SAT 93–97
[2016-03-29] MEDS: 0.9% Sodium Chloride 1,000 ML IV SCH ×3 (03:09→23:55)
[2016-03-29] MEDS: Labetalol 5 mg/mL 4 mL Inj IVPUSH PRN ×5 (06:17→20:43)
--- NOTE | 2016-03-29 07:39 | NUR ---
HTN Pt's BP 194/103 at 0730, HR 114. Labetalol given IVP, recheck 179/94 with a HR of 97. Son at bedside, pt's HR initially increased to 120's, back to 90's at this time. Monitoring closely for indicators of pain/discomfort. Addendum: 03/29/16 at 1849 by ALON JONAS RN HTN Towards end of shift, pt's BP increasing. BP obtained while pt was being turned/portioned and recorded higher than previous readings. PRN antihypertensive given per order. Pt continues on MP30 monitor with BP checks Q30 minutes.
--- NOTE | 2016-03-29 10:50 | PCM.PNMED ---
Subjective Date of Service Mar 29, 2016 Subjective Keri remains nonverbal today. Exam Vital Signs Vital Sign - Last Date Time Temp Pulse Resp B/P Pulse Ox O2 Delivery O2 Flow Rate FiO2 03/29/16 10:42 119 03/29/16 08:49 36.7 22 177/96 94 03/29/16 05:22 Room Air 03/28/16 00:50 2.00 Intake and Output 03/28/16 03/28/16 03/29/16 Cumulative From/Thru 15:00 23:00 07:00 03/27/16 03:45 - 03/29/16 06:14 Intake Total 1653 ml 0 ml 2724 ml Output Total 1400 ml 300 ml 2800 ml Balance 253 ml -300 ml -76 ml Intake Oral 0 ml 0 ml 0 ml IV Total 1653 ml 2724 ml Output Urine Total 1400 ml 300 ml 2800 ml Exam General: Nonverbal and unable to cooperate with physical examination. Well- nourished, not opening her eyes spontaneously or to command. No purposeful movements observed this morning. HEENT: Normocephalic, atraumatic. External ears without defect. Eyes closed, dose not blink. Eyes with left lateral gaze, unable to alter gaze. PERRLA. Cardiovascular: Irregularly irregular without murmur, rub, or gallop appreciated Pulmonary: Periodic agonal breathing. Abdomen: Normoactive bowel tones. Soft, nondistended. : Muñiz catheter in place draining translucent yellow urine Extremities: No clubbing, cyanosis, or edema. Skin: Normal temperature, turgor, and texture; no rash. Neurological: Normal muscle tone and bulk. Positive Babinski on the right. Flaccid right upper extremity. Lab and Diagnostics Result Diagram: 03/27/161 03/27/16 0401 X-Rays, CTs and MRIs PROCEDURE: CT BRAIN WITHOUT CONTRAST 03/28/16: IMPRESSION: 1. Increased left temporoparietal hemorrhage, with increased surrounding vasogenic edema. There is consequently increased mass effect upon the ventricles as described above, and increased, roughly 8 mm of rightward midline shift. 2. New intraventricular hemorrhage. 3. No change in left cerebellar low density focus, which could be further assessed by MRI, if clinically indicated. 4. No change in small left frontal parafalcine high density focus, consistent with a meningioma. 5. Findings discussed with Dr. Freeman on 03.28.16 at 1108 hrs. Dictated by: Gaurav Hinson M.D. on 03/28/2016 at 11:10 Assessment & Plan Keri is a 80yo female who was brought to [facility] abnormal neurological status, admitted for an intraparenchymal hemorrhage which on repeat CT is worse, suspect this worsening occurred during the first several hours after initial presentation. She remains nonverbal and does not appear to have any purposeful movements. 1. Acute Intraparenchymal hemorrhage in the left temporoparietal region and with associated edema. Present on admission - Unfortunately her prognosis is poor which was discussed with the patient's son via the palliative care team - Continue NPO status - Control Hypertension with metoprolol IV to maintain her systolic blood pressure 150-180mmHg - Seizure prophylaxis with Keppra - Palliative care has consulted, their continued expertise is appreciated - Reevaluate neurological status 2. Hypertensive Crisis. Present on admission, improved - Metoprolol as above - Blood pressure goal as above - Continue to monitor 3. Arthrosclerosis, present on admission, active - Will hold atorvastatin at this time 4. Mild leukocytosis, present on admission,active - Likely stressed induced. Concerns for aspiration. - May prescribe antibiotics if this appears to be pneumonia and that is what her family wishes for her - Acetaminophen IV PRN for pain or fever - Ondansetron IV PRN VTE Mechanical Devices: Intermittant Pneumatic CD Resuscitation Status: Limited Interventions Limited Interventions: Medications and IV Fluid Time spent 35 minutes Attending Statement I have seen and directly evaluated patient at bedside in addition to directly supervising care provided by resident physician. I agree with above documentation. Марина Freeman DO Mar 29, 2016 10:50 Michael Nino DO Mar 29, 2016 16:17
--- NOTE | 2016-03-29 12:41 | NUR ---
Social Work-continued d/c planning: Data:EMR Reviewed. Pt is on day 2 of hospitalization for hemorrhagic stroke per H&P. Pt is not medically stable for discharge at this time. Family to have follow up palliative care meeting today to determine goals of care at 1600. SW to follow up with pt and family post meeting with palliative to further discuss discharge planning. SW will continue to follow. Assessment:Pt who is independent at baseline. Plan:SW to follow up with family post palliative care meeting today. SW will continue to follow. DYLAN Mejía
--- NOTE | 2016-03-29 15:37 | NUR ---
NUTRITION ASSESSMENT ASSESS: 80yo female admitted for hemorrhagic stroke. found pt unresponsive at home and alerted EMS. Pt brought to ED where right-sided weakness and ability to follow commands worsened. Pt is currently non-responsive and non-verbal. Palliative is involved and plans to meet w/ family again this afternoon regarding POC. PMHX: Atherosclerosis, HTN, COPD LABS: Gluc 175, Bilirubin 1.8, Prealbumin 13 MEDS: Reviewed. GI: No BM reported. SKIN: Shahram 11 CURRENT WT: 83.5 kg BMI: 28.8 kg/m2 DIET: NPO x 2 days EST. NEEDS: Kcals: 3359-4972 kcal (25-30 kcal/kg BW) Pro: 65-85g (0.8-1.0 g/kg BW) NUTRITION DIAGNOSIS: 1.) Inadequate oral intake related to hemorrhagic stroke and decreased ability to consume sufficient energy as evidenced by current NPO status. NUTRITION INTERVENTION: 1.) Monitor POC and diet advancement or nutrition support options. MONITOR / EVAL: POC, wt, labs. Will continue to follow per moderate nutritional risk guidelines. Addendum: 03/29/16 at [address] Auxiliary student documentation reviewed. I agree with above documentation. Raymundo Alvarez, CAESAR, CD
--- NOTE | 2016-03-29 15:46 | NUR ---
LENS COATING TECHNICIAN consult received. Pt closed mouth to both tactile and thermal stimulation for PO trials, and turned her head away from LENS COATING TECHNICIAN and spoon. Oral care was also attempted with the same result. Outcome was written on the board and discussed with RN and MD. LENS COATING TECHNICIAN will follow as needed.
--- NOTE | 2016-03-29 15:49 | PCM.PNPALL ---
Date of Service Mar 29, 2016 Date of Hospital Admission: Mar 27, 2016 at 05:44 Date of Palliative Consult: Mar 27, 2016 Palliative Care Recommendation Summary of palliative recommendations: 03/29/16 Reviewed-see discussion. Reviewed with Hospital team Will contact family again tomorrow. Symptom management (Pain/other): per Attending. DPOA/Advanced Directives/POLST: 1. Code Status is: DNR/DNI per EMR. 2. Designated POA: presumptively would be Steven Ceja, in absence of any paperwork to the contrary. 3. Mr. Ceja ([phone]) will meet with Palliative Care Team's Dr. Graves and RUTHIE Melgar at 1430pm today () 4. There is a prior POLST, signed by Mrs. Ceja and her PCP, Milla Day MD on 02/01/16 that states: DNR. The rest of POLST is not completed. 5. After 03/27 FCTM, new POLST completed. See details below. Family/emotional support: 1. Keri's biological son, Long Masterson prefers home number: [phone], ( cell: [phone]). He lives 3 1/2 hours away in [place], [place]. Cell Service is spotty in his home. 2.Keri's biological daughter Sara Masterson, lives in [place], and is communicating with her brother on issues of her mother's health and function. Her cell number is: [phone] 3. Keri has another son, Driss, who is estranged her and rest of family, and family does not know his whereabouts. Family Care Team Meeting: Mr. Steven Ceja did not arrive at hospital for planned meeting at 1430h. We called him and he had gone to [facility]; he thought she was hospitalized there. We gave him directions to [facility]. He arrived at 15:30pm. Present were: Dr. Graves Steven Ceja (), Pt's Son Long and Daughter Sara on Speakerphone Per family interview: 1. Keri's baseline function prior to this stroke was excellent mentally with dyspnea on exertion and increased sedentary lifestyle. 2. Keri had chronic hypertension, but no known lung disease or heart disease. She and Steven have been 11 years. 3. About 6-7 years ago, she started to get more dyspnea with moving, and has been growing more sedentary subsequently. She was not on home oxygen, but she could not do housework "because she would run out of breath," says Steven. She had been sleeping almost upright in a recliner for years. 4. 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 5. Prior to this stroke, Keri was fully independent in all activities in daily living: she could wash, dress, cook simple meals, drive. She tended to eat small amounts of food continually throughout the day, that she prepared, says Steven. She could perform errands such as grocery shopping, banking, going to library and she loves to read, watch politics on TV and discuss current events with her and daughter, who calls her almost daily. 6. She had no symptoms of short term memory loss or cognitive impairment per her and daughter. Son Long talks to her less often and didn't express an opinion, but said that she is very intelligent throughout his past contacts with her. Palliative Plan for 03/28/15: 1. I recommend that medical team check in with Steven and son Long (who is driving in and will arrive by 10am or so) and give medical update and their prognosis for rehabilitation from this stroke. 2. If medical team feels that prognosis of patient is poor based on NIHSS, sequential physical exam, poor blood pressure control, etc., please inform family in detail. 3. If prognosis is indeterminate, I recommend that artificial nutrition be addressed initially with NGT placement, consider PEG in future depending on patient's clinical appearance in a few days. 4. If prognosis is poor, I recommend perhaps ST NGT feeding, but no permanent artificial nutrition and Palliative Care can assist family with understanding this. 4. Pall Care Provider will look for family tomorrow to help support and answer questions. Spiritual support: TBD Additional Medical Diagnoses with primary management by Hospitalist team include : Problems: End of Life Preferences POLST: 1. Prior POLST discussed with family, listed as DNR without other parts of form completed. 2. Family agreed to have Steven sign new, complete POLST today 03/27/16: DNR/DNI /please use all other interventions to try to reverse effects of this stroke but do NOT intubate or ventilate. They are fine with using antibiotics for any infection that develops They are fine with starting temporary NGT feedings for nutrition, and even a trial of permanent TFs if she shows signs that her mind can improve to near her prior baseline ("she has to be able to read books, at least, and be able to communicate with people, or she won't be happy," says the family) Original POLST of 02/01/16 was voided, new POLST 03/27/16 placed in paper chart with several copies for the family. Goals of Care Per Family, Keri's Quality of life preferences: 1. Keri is very intelligent at baseline, and if needs to be able to have a good mind that can interact with others, read, play with her pet dogs Nugget and Guadalupe. 2. Keri wouldn't mind if she were in a wheelchair, or needed more physical assistance to move around, but she would mind if other people had to toilet her. 3. Keri would put up with a speech deficit caused by a stroke, as long as she could communicate in writing/pointing/communication board. Disposition Likely will need skilled rehabilitation for physical deficits from stroke Resuscitation Status Resuscitation Status: Limited Interventions Limited Interventions: Medications and IV Fluid POLST Updates/Changes Previous POLST?: Yes POLST Last Review Date: Mar 27, 2016 Antibiotics: Use ABX if can Prolong Life Artificially Admin Nutrition: Trial Period Tube Feeding POLST Discussed with: Spouse/Other POLST Review Outcome: New Form Completed Palliative Subjective Palliative Care Daily Responde: Patient, Family/Proxy, Team Brief History 80 yo with hx of AMS and R sided weakness noted by her who found her on toilet. Prior to that no apparent problems and good general health. She had had discussion with her PCP Dr. Milla Day in January and completed POLST as no CPR. It was not delineated on the form but apparently had fair discussion on this with defining not feeding tube etc. Patient/Family Concerns identifies that if she cannot read Some independence and discuss politics she would not consider it quality of life He also identifies that she has the closest relationship with her daughter. He states they have been together for 11 years but at this point she does not feel close to his and feels that she has been unhappy in their marriage. She apparently has a sister and brother. He states he would defer decision- making regarding healthcare decisions like feeding tubes to her children primarily her daughter Subjective Unresponsive, does not follow command but does do purposeful movements by picking at her blanket to cover her left arm. She will grasp hand but not on command with left hand Palliative Performance Scale Performace Scale: 10% Objective Findings Exam Vital Sign - Last Date Time Temp Pulse Resp B/P Pulse Ox O2 Delivery O2 Flow Rate FiO2 03/29/16 12:52 37.0 90 20 175/81 96 Room Air 03/28/16 00:50 2.00 Intake and Output 03/28/16 03/28/16 03/29/16 Cumulative From/Thru 15:00 23:00 07:00 03/27/16 03:45 - 03/29/16 06:14 Intake Total 1653 ml 0 ml 2724 ml Output Total 1400 ml 300 ml 2800 ml Balance 253 ml -300 ml -76 ml Intake Oral 0 ml 0 ml 0 ml IV Total 1653 ml 2724 ml Output Urine Total 1400 ml 300 ml 2800 ml General: Minimally responsive, Other (lifts her left arm spontaneously. Moves it purposefully less spontaneous movement of her left lower leg, dense right hemiparesis) HEENT: Other (pupils pinpoint (miosis), unable to open eyes completely, when eyelids retracted prominent left gaze preference) Heart: Normal S1, S2, No Murmurs/Rubs/Gallops, Dysrhythmia Present (PAF, freq PACs) Lungs: Clear to Auscultation Abdomen: Benign, Bowel Tones x4, Soft, Non Tender Neuro: Other (dense hemiparesis. Ice can be manually opened but she appears to be uncomfortable. They have conjugate gaze. Right facial weakness blowing from the right side of her mouth) Extremities: Edema (1+ right leg only) Lab/Diagnostics Lab and Imaging results reviewed in detail in EMR. Patient/Family Conference Members Present Family Members Present Telephone call to Steven and later to son Long and daughter Beverly Medical Team Members Present? Lennox crespo [facility] Discussion/Goals of Care Discussion FAMILY UNDERSTANDING OF DISEASE: TC to Steven. He states he will follow and support what Beverly and Long decide as far as further invention or management. Conference call to Long and Beverly reviewing severity of stroke, obtundation and ability to deal with own secretions but no ability to engage swallow eval. Reviewed HTN and Afib management at this time Reviewed need for ECF care at this point forward with little expectation of significant recovery to level of independence. Reviewed discussion on question of feeding tube including communication with her PCP that she did not want a feeding tube. Her daughter is considering a shortterm trial of NG tube to give her a chance to assess if any significant recovery. This will be reviewed again in the next few days. I Time spent Total time [ 65] minutes; >50% face to face with patient and/or family, providing counselling regarding plans and recommendations, and in care coordination with his/her medical teams. Including family conferences by phone I also spent an additional [ ] minutes counseling for advanced care planning with the patient/the patients family/the surrogate decision maker. copies to: Milla Day MD, Deborah A MD Mar 29, 2016 15:49 his/her medical teams. I also spent an additional [ ] minutes counseling for advanced care planning with the patient/the patients family/the surrogate decision maker. Priyanka Levine MD Mar 29, 2016 15:49
--- NOTE | 2016-03-29 17:50 | NUR ---
Wound Care Pressure ulcer protocol received, pt seen at bedside. 80yo female who was brought to [facility] abnormal neurological status. Somnolent nonverbal female in right sidelying on a low airloss mattress. Skin inspection reveals no pressure related skin issues. Will need frequent repositioning and heel floating.
[2016-03-29] MEDS: HYDROmorphone 1 mg/mL Inj IVPUSH PRN (22:05)
[2016-03-30] VITALS (22 sets, daily range): BP systolic 75–213; BP diastolic 60–191; PULSE 95–140; RESP 19–28; O2SAT 91–98
[2016-03-30] MEDS: Labetalol 5 mg/mL 4 mL Inj IVPUSH PRN ×5 (01:47→22:29)
[2016-03-30] MEDS: HYDROmorphone 1 mg/mL Inj IVPUSH PRN ×3 (06:19→23:22)
--- NOTE | 2016-03-30 06:31 | NUR ---
Blood pressure/Heart rate Patients blood pressure remains within goal PRN labetalol 20mg IV given x2 this shift. BP remains 170's systolic HR 100-110's Afib while sleeping. At times patient awoke slightly restless pulling at IV, gripping side of bed. Patient medicated with 1mg dilaudid IV for discomfort. Patient did awake at one time she looked at me and smiled. unable to follow commands. pulls covers over herself with her left hand and is neglecting her right hand.
[2016-03-30] MEDS ORDERED: MeTOProlol 1 mg/mL 5 mL Inj IVPUSH SCH (09:30)
[2016-03-30] MEDS ORDERED: MeTOProlol 1 mg/mL 5 mL Inj IVPUSH ONE (12:35)
[2016-03-30] MEDS: 0.9% Sodium Chloride 1,000 ML IV SCH (13:24)
--- NOTE | 2016-03-30 15:00 | NUR ---
HTN B/P = 193/114, HR = 121, 10 mg Labatolol given IV push. B/P recheck = 194/107, HR = 111. MD salazar. Addendum: 03/30/16 at 1549 by MARLON SRIVASTAVA RN MD came to bedside, pt appears to be in pain. resps increased at 22 and face is flushed. When pt asked by this RN to "squeeze my hands if you are having pain" pt squeezed this RNs hand multiple times. Pt given 2 mg IV Dilaudid for pain. Per Dr Freeman, wait 20 minutes recheck BP. Will continue to monitor,
--- NOTE | 2016-03-30 15:48 | NUR ---
Social Work: Continued d/c planning Data: Pt is on day 3 of hospitalization. EMR reviewed, pt discussed in rounds. Palliative AQUACULTURE FARMER spoke with AQUACULTURE FARMER regarding pt and states that the palliative team no longer thinks pt is imminent and that SNF may be an option for her. AQUACULTURE FARMER called pt's son, no answer, AQUACULTURE FARMER left a message requesting a call back. AQUACULTURE FARMER spoke with MD who states that pt's daughter [facility] and will be in on 03/31 to discuss d/c planning further. AQUACULTURE FARMER will follow up with pt and family regarding d/c plan on 03/31. Plan: AQUACULTURE FARMER will follow up with pt and family on 03/31 regarding d/c plan and SNF choices. AQUACULTURE FARMER will continue to follow. DYLAN Andrade
--- NOTE | 2016-03-30 16:01 | PCM.PNPALL ---
Date of Service Mar 30, 2016 Date of Hospital Admission: Mar 27, 2016 at 05:44 Date of Palliative Consult: Mar 27, 2016 Palliative Care Recommendation Summary of palliative recommendations: 03/29/16 Reviewed-see discussion. Reviewed with Hospital team Will contact family again tomorrow. Symptom management (Pain/other): per Attending. 03/30/16 will arrange family conference tomorrow DPOA/Advanced Directives/POLST: 1. Code Status is: DNR/DNI per EMR. 2. Designated POA: presumptively would be Steven Ceja, in absence of any paperwork to the contrary. 3. Mr. Ceja ([phone]) will meet with Palliative Care Team's Dr. Graves and RUTHIE Melgar at 1430pm today () 4. There is a prior POLST, signed by Mrs. Ceja and her PCP, Milla Day MD on 02/01/16 that states: DNR. The rest of POLST is not completed. 5. After 03/27 FCTM, new POLST completed. See details below. Family/emotional support: 1. Keri's biological son, Long Masterson prefers home number: [phone], ( cell: [phone]). He lives 3 1/2 hours away in [place], [place]. Cell Service is spotty in his home. 2.Keri's biological daughter Sara Masterson, lives in [place], and is communicating with her brother on issues of her mother's health and function. Her cell number is: [phone] 3. Keri has another son, Driss, who is estranged her and rest of family, and family does not know his whereabouts. Family Care Team Meeting: Mr. Steven Ceja did not arrive at hospital for planned meeting at 1430h. We called him and he had gone to [facility]; he thought she was hospitalized there. We gave him directions to [facility]. He arrived at 15:30pm. Present were: Dr. Graves Steven Ceja (), Pt's Son Long and Daughter Sara on Speakerphone Per family interview: 1. Keri's baseline function prior to this stroke was excellent mentally with dyspnea on exertion and increased sedentary lifestyle. 2. Keri had chronic hypertension, but no known lung disease or heart disease. She and Steven have been 11 years. 3. About 6-7 years ago, she started to get more dyspnea with moving, and has been growing more sedentary subsequently. She was not on home oxygen, but she could not do housework "because she would run out of breath," says Steven. She had been sleeping almost upright in a recliner for years. 4. 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 5. Prior to this stroke, Keri was fully independent in all activities in daily living: she could wash, dress, cook simple meals, drive. She tended to eat small amounts of food continually throughout the day, that she prepared, says Steven. She could perform errands such as grocery shopping, banking, going to library and she loves to read, watch politics on TV and discuss current events with her and daughter, who calls her almost daily. 6. She had no symptoms of short term memory loss or cognitive impairment per her and daughter. Son Long talks to her less often and didn't express an opinion, but said that she is very intelligent throughout his past contacts with her. Palliative Plan for 03/28/15: 1. I recommend that medical team check in with Steven and son Long (who is driving in and will arrive by 10am or so) and give medical update and their prognosis for rehabilitation from this stroke. 2. If medical team feels that prognosis of patient is poor based on NIHSS, sequential physical exam, poor blood pressure control, etc., please inform family in detail. 3. If prognosis is indeterminate, I recommend that artificial nutrition be addressed initially with NGT placement, consider PEG in future depending on patient's clinical appearance in a few days. 4. If prognosis is poor, I recommend perhaps ST NGT feeding, but no permanent artificial nutrition and Palliative Care can assist family with understanding this. 4. Pall Care Provider will look for family tomorrow to help support and answer questions. Spiritual support: TBD Additional Medical Diagnoses with primary management by Hospitalist team include : Problems: End of Life Preferences POLST: 1. Prior POLST discussed with family, listed as DNR without other parts of form completed. 2. Family agreed to have Steven sign new, complete POLST today 03/27/16: DNR/DNI /please use all other interventions to try to reverse effects of this stroke but do NOT intubate or ventilate. They are fine with using antibiotics for any infection that develops They are fine with starting temporary NGT feedings for nutrition, and even a trial of permanent TFs if she shows signs that her mind can improve to near her prior baseline ("she has to be able to read books, at least, and be able to communicate with people, or she won't be happy," says the family) Original POLST of 02/01/16 was voided, new POLST 03/27/16 placed in paper chart with several copies for the family. Goals of Care Per Family, Keri's Quality of life preferences: 1. Keri is very intelligent at baseline, and if needs to be able to have a good mind that can interact with others, read, play with her pet dogs Nugget and Guadalupe. 2. Keri wouldn't mind if she were in a wheelchair, or needed more physical assistance to move around, but she would mind if other people had to toilet her. 3. Keri would put up with a speech deficit caused by a stroke, as long as she could communicate in writing/pointing/communication board. Disposition Likely will need skilled rehabilitation for physical deficits from stroke Resuscitation Status Resuscitation Status: Limited Interventions Limited Interventions: Medications and IV Fluid POLST Updates/Changes Previous POLST?: Yes POLST Last Review Date: Mar 27, 2016 Antibiotics: Use ABX if can Prolong Life Artificially Admin Nutrition: Trial Period Tube Feeding POLST Discussed with: Spouse/Other POLST Review Outcome: New Form Completed Palliative Subjective Palliative Care Daily Responde: Patient, Family/Proxy, Team Brief History 80 yo with hx of AMS and R sided weakness noted by her who found her on toilet. Prior to that no apparent problems and good general health. She had had discussion with her PCP Dr. Milla Day in January and completed POLST as no CPR. It was not delineated on the form but apparently had fair discussion on this with defining not feeding tube etc. Patient/Family Concerns identifies that if she cannot read Some independence and discuss politics she would not consider it quality of life He also identifies that she has the closest relationship with her daughter. He states they have been together for 11 years but at this point she does not feel close to his and feels that she has been unhappy in their marriage. She apparently has a sister and brother. He states he would defer decision- making regarding healthcare decisions like feeding tubes to her children primarily her daughter Subjective Bit renal nurse today-opening eyes spontaneously. Pet her dog when put near her hand L Still dense RHP. Palliative Performance Scale Performace Scale: 10% Objective Findings Exam Vital Sign - Last Date Time Temp Pulse Resp B/P Pulse Ox O2 Delivery O2 Flow Rate FiO2 03/30/16 14:11 36.5 115 23 193/114 95 Nasal Cannula 1.00 Intake and Output 03/29/16 03/29/16 03/30/16 Cumulative From/Thru 15:00 23:00 07:00 03/27/16 03:45 - 03/30/16 04:48 Intake Total 863 ml 941 ml 0 ml 4528 ml Output Total 500 ml 600 ml 3900 ml Balance 863 ml 441 ml -600 ml 628 ml Intake Oral 0 ml 0 ml 0 ml IV Total 863 ml 941 ml 4528 ml Output Urine Total 500 ml 600 ml 3900 ml Objective BP 175/ HR 70's General: Minimally responsive, Other (lifts her left arm spontaneously. Moves it purposefully less spontaneous movement of her left lower leg, dense right hemiparesis) HEENT: Other (pupils pinpoint (miosis), unable to open eyes completely, when eyelids retracted prominent left gaze preference) Heart: Normal S1, S2, No Murmurs/Rubs/Gallops, Dysrhythmia Present (PAF, freq PACs) Lungs: Clear to Auscultation Abdomen: Benign, Bowel Tones x4, Soft, Non Tender Neuro: Other (dense hemiparesis. Ice can be manually opened but she appears to be uncomfortable. They have conjugate gaze. Right facial weakness blowing from the right side of her mouth) Extremities: Edema (1+ right leg only) Lab/Diagnostics Lab and Imaging results reviewed in detail in EMR. Patient/Family Conference Members Present Family Members Present Son- Long Medical Team Members Present? [place] Discussion/Goals of Care Discussion FAMILY UNDERSTANDING OF DISEASE: Daughter Beverly is flying in this evening Family (son and daughter) had discussion further last selvin. Daughter consulted with friend RN. Questions raised- exact diagnosis, prognosis, risk of complications etc. We have reviewed this and go through some of it again. deficit will be substantial- raises question of what she defines as QOL. Further decisions will be reviewed tomorrow with both daughter and son here. Sounds like they are leaning toward consider short term feeding tube trial which would give fluids and nutrition and allow for meds to control BP and HR. They do define no usp feeding tube. Will review in conference tomorrow. Long asked questions regarding involvement for hospice and they may be interested Palliative Care counselled: Time spent Total time [ 35] minutes; >50% face to face with patient and/or family, providing counselling regarding plans and recommendations, and in care coordination with his/her medical teams. I also spent an additional [ ] minutes counseling for advanced care planning with the patient/the patients family/the surrogate decision maker. Priyanka Levine MD Mar 30, 2016 16:01 If patient is no longer alert and aware because of their illness, would you choose comfort for them? Palliative Care counselled: Time spent Total time [ ] minutes; >50% face to face with patient and/or family, providing counselling regarding plans and recommendations, and in care coordination with his/her medical teams. I also spent an additional [ ] minutes counseling for advanced care planning with the patient/the patients family/the surrogate decision maker. Priyanka Levine MD Mar 30, 2016 16:01
--- NOTE | 2016-03-30 16:30 | PCM.PNMED ---
Subjective Date of Service Mar 30, 2016 Subjective Keri remains nonverbal though she is moving her left hand today. Exam Vital Signs Vital Sign - Last Date Time Temp Pulse Resp B/P Pulse Ox O2 Delivery O2 Flow Rate FiO2 03/30/16 14:11 36.5 115 23 193/114 95 Nasal Cannula 1.00 Intake and Output 03/29/16 03/29/16 03/30/16 Cumulative From/Thru 15:00 23:00 07:00 03/27/16 03:45 - 03/30/16 04:48 Intake Total 863 ml 941 ml 0 ml 4528 ml Output Total 500 ml 600 ml 3900 ml Balance 863 ml 441 ml -600 ml 628 ml Intake Oral 0 ml 0 ml 0 ml IV Total 863 ml 941 ml 4528 ml Output Urine Total 500 ml 600 ml 3900 ml Exam General: Nonverbal and minimally cooperate with physical examination. Opening her eyes occasionally on examination. Well-nourished. Petted her dog who was brought in by her son once her hand was placed on the dog's back. Her heart rate went up during this interaction. Briefly grimaced early this afternoon HEENT: Normocephalic, atraumatic. External ears without defect. Eyes closed during much of time unless asked to open her eyes or talking loudly. Eyes with left lateral gaze with some movement though she does not cross midline. PERRLA. Cardiovascular: Irregularly irregular without murmur, rub, or gallop appreciated. No JVD Pulmonary: Periodic agonal breathing as well as periods of normal breathing Abdomen: Normoactive bowel tones. Soft, nondistended. : Muñiz catheter in place draining translucent yellow urine Extremities: No clubbing, cyanosis, or edema. Skin: Normal temperature, turgor, and texture; no rash. Neurological: Normal muscle tone and bulk. Positive Babinski on the right. Flaccid right upper and lower extremities. Moves the left arm distal to the elbow. 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 Left leg movement does not appear to be purposeful. IVs and Medications Medications Reviewed: Medications were reviewed in detail Lab and Diagnostics Result Diagram: 03/27/16 0401 03/27/16 0401 X-Rays, CTs and MRIs PROCEDURE: CT BRAIN WITHOUT CONTRAST 03/28/16: IMPRESSION: 1. Increased left temporoparietal hemorrhage, with increased surrounding vasogenic edema. There is consequently increased mass effect upon the ventricles as described above, and increased, roughly 8 mm of rightward midline shift. 2. New intraventricular hemorrhage. 3. No change in left cerebellar low density focus, which could be further assessed by MRI, if clinically indicated. 4. No change in small left frontal parafalcine high density focus, consistent with a meningioma. 5. Findings discussed with Dr. Freeman on 03.28.16 at 1108 hrs. Dictated by: Gaurav Hinson M.D. on 03/28/2016 at 11:10 Assessment & Plan Keri is a 80yo female who was brought to [facility] abnormal neurological status, admitted for an intraparenchymal hemorrhage which on repeat CT is worse, suspect this worsening occurred during the first several hours after initial presentation. She remains nonverbal though her neurological examination is improved from yesterday. Her daughter is flying in from [place], [place] to assist with care planning. Keri's children are in charge of making her medical decisions at this time. Keri's blood pressure has been high today as well as her heart rate. 1. Acute Intraparenchymal hemorrhage in the left temporoparietal region with associated edema. Present on admission - Unfortunately her prognosis is poor which was discussed with the patient's son via the palliative care team - Continue NPO status, speech therapy attempted to reevaluate her today, though she did not cooperate - Managing her blood pressure to maintain her systolic blood pressure 150- 180mmHg - Continue seizure prophylaxis with Keppra - Palliative care has consulted, their continued expertise is appreciated - Frequent reevaluations of her neurological status 2. Hypertensive Crisis. Present on admission, ongoing - Metoprolol 20mg BID Scheduled - Clonidine patch - Labetalol 20mg q10min IV push PRN - Blood pressure goal as above - Continue to monitor 3. Arthrosclerosis, present on admission, active - Holding atorvastatin at this time 4. Mild leukocytosis, present on admission,active - Likely stressed induced. Concerns for aspiration. - May prescribe antibiotics if this appears to be pneumonia and that is what her family wishes for her - CBC in the morning - Acetaminophen IV PRN for pain or fever - Ondansetron IV PRN VTE Mechanical Devices: Intermittant Pneumatic CD Resuscitation Status: Limited Interventions Limited Interventions: Medications and IV Fluid Time spent 30 minutes Attending Statement I have seen and evaluated patient at bedside in addition to directly supervising care provided by resident physician. I agree with above documentation. Марина Freeman DO Mar 30, 2016 16:09 Michael Nino DO Mar 31, 2016 08:57
--- NOTE | 2016-03-30 17:00 | NUR ---
HTN B/P continues to be elevated at 162/108 HR in the low 100s. MD aware, new order given. Clonidine patch placed. Will continue to monitor.
[2016-03-30] MEDS: MeTOProlol 1 mg/mL 5 mL Inj IVPUSH SCH (19:46)
--- NOTE | 2016-03-30 21:37 | DRSVH ---
PROCEDURE: X-RAY CHEST ONE VIEW, PORTABLE ([id number]) INDICATIONS: ASPIRATIONS TECHNIQUE: One view of the chest was acquired. COMPARISON: [facility], CR, XR CHEST 1VW (PORTABLE), 03/27/2016, 3:55. FINDINGS: Surgical changes and devices: None. Lungs and pleura: Trace left-sided pleural fluid collection is noted. Mediastinum: Mediastinal contours appear normal. Heart size is normal. Bones and chest wall: No suspicious bony lesions. Overlying soft tissues appear unremarkable. IMPRESSION: Trace left-sided pleural effusion. Dictated by: Megan Cunningham MD, PhD on 03/30/2016 at 21:35 Approved by: Megan Cunningham MD, PhD on 03/30/2016 at 21:35
[2016-03-30] MEDS ORDERED: MeTOProlol 1 mg/mL 5 mL Inj IV SCH (22:35)
[2016-03-30] MEDS ORDERED: MeTOProlol 1 mg/mL 5 mL Inj IV PRN (22:38)
[2016-03-31] MEDS: HYDROmorphone 1 mg/mL Inj IVPUSH PRN (00:08)
[2016-03-31] MEDS ORDERED: Furosemide 10 mg/mL 4 mL Inj ONE (00:27)
[2016-03-31] MEDS ORDERED: Furosemide 10 mg/mL 4 mL Inj IVPUSH ONE (00:35)
[2016-03-31] MEDS ORDERED: Morphine 100 mg/100 mL NS 100 MG in IV Premix 1 EACH IV SCH (01:00)
[2016-03-31] MEDS ORDERED: LORazepam 2 mg/mL Inj SEIZURE IVPUSH PRN (01:00)
[2016-03-31] MEDS ORDERED: Artificial Tears 15 mL Ophthalmic Solution AFFECT_EYE PRN (01:00)
--- NOTE | 2016-03-31 06:29 | NUR ---
Pain/Suction/morphine gtt Son concerned patient having increased pain patient medicated with 0.5mg Dilaudid ineffective. Patient medicated with another 0.5mg Dilaudid. MD up to speak with son. Son agree on comfort care measures. patient was given 4mg IV morphine and 40mg IV Lasix to help with secretions. and air hunger. 30 minutes later patients son reports improvement. Suction Patient suctioned every 1 hour per family preference thick yellow secretions removed. scopoline patch placed behind right ear. patient on morphine gtt at 1mg/hr. Patient appears more comfortable. family concerned about anxiety. patient medicated with 0.5mg Ativan IV. patient appears comfortable at this time. frequent rounding.
--- NOTE | 2016-03-31 06:29 | NUR ---
Respiratory distress/comfort care Patient moaning crying out. having difficulty clearing secretions. appeared to be choking on secretions. HOB at the time greater than 30 degrees. Patient desat to 84% on 1L via NC. patient suctioned. oximask placed on patient at 15L. RT up to see patient. MD salazar. did not respond. Page[place] hospitalist. Hospitalist did not respond. night resident Tim responded and stated to contact night rachel resident. informed Tim that patient condition has drastically changed and she needs to be assessed. Verbal order for deep suction obtained from Tim. Dr. Lauren up to assess patient. order to for EKG and chest xray. Order to place NG tube due to blood/bile when deep suctioning. unable to place NG. Patient deep suctionedx2 by RT. Patient 02 saturations improved to 95% on 15L via oximask. Patient BP elevated 190's-200's systolic HR 130-150's. Patient given labetalolx1. MD states to hold metropolol and labetalol at this time. BP down to 130's systolic HR remains elevated 130's. Patients son called by charge nurse. Patients son in to meet with MD about patient condition. Son educated on comfort care with night hospitalist and night resident and is agreeing to comfort measures at this time.
[2016-03-31 07:06] LABS: BASOPHILS % (AUTO) 0.1 % (0-3); EOSINOPHILS % (AUTO) 0 % (0-5); MONOCYTES % (AUTO) 6.5 % (4-12); Mean Corpuscular Hemoglobin 28.6 pg (27.0-35.0); Mean Corpuscular Volume 84.3 fL (81-100); NEUTROPHILS % (AUTO) 88.8 % (40-74); Platelet Count 277 bil/L (150-400)
[2016-03-31 08:00] VITALS: PULSE 120
[2016-03-31] MEDS ORDERED: Dexamethasone 4 mg/mL Inj IVPUSH SCH (08:30)
--- NOTE | 2016-03-31 08:45 | PCM.PNMED ---
Subjective Date of Service Mar 31, 2016 Subjective Overnight, the patient had an episode of emesis and aspiration. Respiratory therapy assisted the patient with deep suction. Her daughter, Beverly, has arrived from [place] and states that after seeing her mother in person, she wants her to be transitioned to comfort care. Exam Vital Signs Vital Sign - Last Date Time Temp Pulse Resp B/P Pulse Ox O2 Delivery O2 Flow Rate FiO2 03/31/16 00:30 Supplement Oxygen 03/30/16 23:30 140 115/61 03/30/16 23:00 24 93 15.00 03/30/16 21:41 37.2 Intake and Output 03/30/16 03/30/16 03/31/16 Cumulative From/Thru 15:00 23:00 07:00 03/27/16 03:45 - 03/30/16 18:12 Intake Total 0 ml 4528 ml Output Total 1000 ml 4900 ml Balance -1000 ml -372 ml Intake Oral 0 ml 0 ml IV Total 4528 ml Output Urine Total 1000 ml 4900 ml Exam General: Laying supine in bed with the head of the bed elevated to 50 degrees and oxygen mask in place at 10L/h. Nonverbal and minimally cooperate with physical examination. Opening her eyes frequently. She has frequent white drainage from the nose and mouth. No cough or gag. HEENT: Normocephalic, atraumatic. External ears without defect. Eyes closed during much of time unless asked to open her eyes or talking loudly. Eyes with left lateral gaze with some movement though she does not cross midline. PERRLA. Cardiovascular: Irregularly irregular without murmur, rub, or gallop appreciated. No JVD Pulmonary: Periodic agonal breathing and rattling respirations Abdomen: Normoactive bowel tones. Soft, nondistended. : Muñiz catheter in place draining translucent yellow urine Extremities: No clubbing, cyanosis, or edema. Skin: Normal temperature, turgor, and texture; no rash. Neurological: Normal muscle tone and bulk. Positive Babinski on the right. Flaccid right upper and lower extremities. Moving the fingers on her left hand this morning. 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 IVs and Medications Medications Reviewed: Medications were reviewed in detail Lab and Diagnostics Result Diagram: 03/31/1630 03/31/16 0630 X-Rays, CTs and MRIs PROCEDURE: CT BRAIN WITHOUT CONTRAST 03/28/16: IMPRESSION: 1. Increased left temporoparietal hemorrhage, with increased surrounding vasogenic edema. There is consequently increased mass effect upon the ventricles as described above, and increased, roughly 8 mm of rightward midline shift. 2. New intraventricular hemorrhage. 3. No change in left cerebellar low density focus, which could be further assessed by MRI, if clinically indicated. 4. No change in small left frontal parafalcine high density focus, consistent with a meningioma. 5. Findings discussed with Dr. Freeman on 03.28.16 at 1108 hrs. Dictated by: Gaurav Hinson M.D. on 03/28/2016 at 11:10 Assessment & Plan Keri is a 80yo female who was brought to [facility] abnormal neurological status, admitted for an intraparenchymal hemorrhage with midline shift of 8mm on second CT. Her daughter Beverly, which he and son Long have directed as the primary decision maker for Keri, is present today and verbally expressed that she would like comfort care for Keri. 1. Acute Intraparenchymal hemorrhage in the left temporoparietal region with associated edema. Present on admission - Unfortunately her prognosis is poor. Her family has decided that they would like to pursue comfort care - Airway suctioning with respiratory therapy once hourly - Supplemental oxygen PRN - Scopolamine patch as she is having a considerable amount of oral secretions - Morphine 1mg/h gtt for pain - Lorazepam 1mg q2h PRN anxiety - Continue seizure prophylaxis with Keppra 2. Hypertensive Crisis. Present on admission, ongoing - Metoprolol 20mg BID Scheduled - Clonidine patch - Labetalol 20mg q10min IV push PRN - Blood pressure goal as above - Continue to monitor 3. Arthrosclerosis, present on admission, active - Holding atorvastatin as she is receiving comfort care and is not taking anything by mouth 4. Mild leukocytosis, present on admission,active - Likely stressed induced. Probable aspiration - Acetaminophen IV PRN for pain or fever - Ondansetron IV PRN Based on the patient's current status, I anticipate that she likely in the next 2 days. VTE Mechanical Devices: Intermittant Pneumatic CD Resuscitation Status: DNR/DNI:Do Not Resuscitate/Intubate (As discussed with Beverly Masterson, her daughter.) Time spent 35 minutes Attending Statement I have seen and evaluated patient in addition to directly superving care provide by resident physician. I agree with above document. This is an unfortunate woman who at least passed in accordance with her wishes due to massive hemorrhagic stroke. Марина Freeman DO Mar 31, 2016 08:32 Michael Nino DO Apr 01, 2016 11:40
[2016-03-31 09:00] VITALS: PULSE 120; RESP 16
--- NOTE | 2016-03-31 09:04 | NUR ---
Social Work: Continued d/c Planning Data: Pt is on day 4 of hospitalization. EMR reviewed. AIRCRAFT DISPATCHER met with pt's daughter at bedside, pt sleeping soundly. Pt's daughter states that she wants pt to remain in the hospital for the duration of her life. AIRCRAFT DISPATCHER let her know about levels of acuity and that pt no longer requires as high of a level of care as the hospital provides and that the Palliative team as of 03/30 estimated that pt had longer than 48 hours to live and that she is stable for transport. Pt's daughter states understanding and that she is willing to send out referrals to locations. She states pt lives in [place], AIRCRAFT DISPATCHER notified her that both SNF in [place] are not accepting pt's at this time. Pt's daughter also states that she prefers pt go to [place] to be near pt's son who lives there. AIRCRAFT DISPATCHER pulled up Medicare.gov in room with pt's daughter and she selected [facility] and [facility], both in [place]. AIRCRAFT DISPATCHER explained that transportation to these locations may be expensive. AIRCRAFT DISPATCHER encouraged pt's daughter to consider options closer to [facility] as transportation may be expensive and that traveling a distance can be difficult for pt's at the end of life. Pt's daughter agreeable to sending other referrals, but requested that AIRCRAFT DISPATCHER wait on the local referrals until she has a chance to speak her her brother today. AIRCRAFT DISPATCHER provided SNF choice list. AIRCRAFT DISPATCHER left a message with UR specialist to send out referrals to these locations today. AIRCRAFT DISPATCHER will continue to follow. Assessment: Pt who was previously independent. Plan: Pt will likely d/c to SNF for comfort care, referrals yet to be sent to [facility], and [facility], both in [place]. AIRCRAFT DISPATCHER will continue to follow. DYLAN Andrade
[2016-03-31] MEDS: MeTOProlol 1 mg/mL 5 mL Inj IVPUSH SCH (09:11)
[2016-03-31 09:30] VITALS: PULSE 55
--- NOTE | 2016-03-31 09:30 | NUR ---
HR HR of 120, 20 mg IV Metoprolol administered as ordered. Re-check of pulse rate 55. MD aware, new order generated. Will continue to monitor.
--- NOTE | 2016-03-31 10:57 | NUR ---
Social Work: Continued d/c planning Data: Pt is on day 4 of hospitalization. INTERN ARCHITECT spoke with Palliative MD and nursing staff who believe that pt will likely pass within 48 hours. INTERN ARCHITECT requested UR specialist not send referrals for pt to SNF. INTERN ARCHITECT will continue to follow. Assessment: Pt who was previously independent. Plan: Pt will likely pass at hospital within 48 hours, per palliative MD and nursing staff. INTERN ARCHITECT will continue to follow if needs arise. DYLAN Andrade
--- NOTE | 2016-03-31 12:07 | PCM.PALLBR ---
Palliative Care Recommendation Summary of palliative recommendations: 03/31/16- Comfort Care/DNR/DNI confirmed with son and daughter. Goal is to minimize fluids and aim for comfort at end of life. UO is decreasing/ moya to remain for comfort. Comfort meds MS for dyspnea and agitation and lorazepam PRN. She has scop patch for secretions. She would most likely be expected to in the next day or so. She is being suctioned PRN and family believes this is helpful. She continues to spontaneously move her LUE-touch her head etc. TC to her Steven to inform him of change of status and he states he understands and supports the decision of CC 03/29/16 Reviewed-see discussion. Reviewed with Hospital team Will contact family again tomorrow. Symptom management (Pain/other): per Attending. 03/30/16 will arrange family conference tomorrow DPOA/Advanced Directives/POLST: 1. Code Status is: DNR/DNI per EMR. 2. Designated POA: presumptively would be Steven Ceja, in absence of any paperwork to the contrary. 3. Mr. Ceja ([phone]) will meet with Palliative Care Team's Dr. Graves and RUTHIE Melgar at 1430pm today () 4. There is a prior POLST, signed by Mrs. Ceja and her PCP, Milla Day MD on 02/01/16 that states: DNR. The rest of POLST is not completed. 5. After 03/27 FCTM, new POLST completed. See details below. Family/emotional support: 1. Keri's biological son, Long Masterson prefers home number: [phone], ( cell: [phone]). He lives 3 1/2 hours away in [place], [place]. Cell Service is spotty in his home. 2.Keri's biological daughter Sara Masterson, lives in [place], and is communicating with her brother on issues of her mother's health and function. Her cell number is: [phone] 3. Keri has another son, Driss, who is estranged her and rest of family, and family does not know his whereabouts. Family Care Team Meeting: Mr. Steven Ceja did not arrive at hospital for planned meeting at 1430h. We called him and he had gone to [facility]; he thought she was hospitalized there. We gave him directions to [facility]. He arrived at 15:30pm. Present were: Dr. Graves, Steven Ceja (), Pt's Son Long and Daughter Sara on Speakerphone Per family interview: 1. Keri's baseline function prior to this stroke was excellent mentally with dyspnea on exertion and increased sedentary lifestyle. 2. Keri had chronic hypertension, but no known lung disease or heart disease. She and Steven have been 11 years. 3. About 6-7 years ago, she started to get more dyspnea with moving, and has been growing more sedentary subsequently. She was not on home oxygen, but she could not do housework "because she would run out of breath," says Steven. She had been sleeping almost upright in a recliner for years. 4. 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 5. Prior to this stroke, Keri was fully independent in all activities in daily living: she could wash, dress, cook simple meals, drive. She tended to eat small amounts of food continually throughout the day, that she prepared, says Steven. She could perform errands such as grocery shopping, banking, going to library and she loves to read, watch politics on TV and discuss current events with her and daughter, who calls her almost daily. 6. She had no symptoms of short term memory loss or cognitive impairment per her and daughter. Son Long talks to her less often and didn't express an opinion, but said that she is very intelligent throughout his past contacts with her. Palliative Plan for 03/28/15: 1. I recommend that medical team check in with Steven and son Long (who is driving in and will arrive by 10am or so) and give medical update and their prognosis for rehabilitation from this stroke. 2. If medical team feels that prognosis of patient is poor based on NIHSS, sequential physical exam, poor blood pressure control, etc., please inform family in detail. 3. If prognosis is indeterminate, I recommend that artificial nutrition be addressed initially with NGT placement, consider PEG in future depending on patient's clinical appearance in a few days. 4. If prognosis is poor, I recommend perhaps ST NGT feeding, but no permanent artificial nutrition and Palliative Care can assist family with understanding this. 4. Pall Care Provider will look for family tomorrow to help support and answer questions. Spiritual support: TBD Additional Medical Diagnoses with primary management by Hospitalist team include : Problems: End of Life Preferences POLST: 1. Prior POLST discussed with family, listed as DNR without other parts of form completed. 2. Family agreed to have Steven sign new, complete POLST today 03/27/16: DNR/DNI /please use all other interventions to try to reverse effects of this stroke but do NOT intubate or ventilate. They are fine with using antibiotics for any infection that develops They are fine with starting temporary NGT feedings for nutrition, and even a trial of permanent TFs if she shows signs that her mind can improve to near her prior baseline ("she has to be able to read books, at least, and be able to communicate with people, or she won't be happy," says the family) Original POLST of 02/01/16 was voided, new POLST 03/27/16 placed in paper chart with several copies for the family. Goals of Care Per Family, Keri's Quality of life preferences: 1. Keri is very intelligent at baseline, and if needs to be able to have a good mind that can interact with others, read, play with her pet dogs Nugget and Guadalupe. 2. Keri wouldn't mind if she were in a wheelchair, or needed more physical assistance to move around, but she would mind if other people had to toilet her. 3. Keri would put up with a speech deficit caused by a stroke, as long as she could communicate in writing/pointing/communication board. Disposition Likely will need skilled rehabilitation for physical deficits from stroke Resuscitation Status Resuscitation Status: DNR/DNI:Do Not Resuscitate/Intubate (As discussed with Beverly Masterson, her daughter.) POLST Updates/Changes Previous POLST?: Yes POLST Last Review Date: Mar 27, 2016 Antibiotics: No Antibiotics Artificially Admin Nutrition: No Artifical Nutrition by Tube POLST Discussed with: Spouse/Other (reviewed with son and daughter and her concurs) POLST Review Outcome: New Form Completed . Advanced Care Planning Address: Comfort care Symptom management: Agitation, Dyspnea, Pain Total time 60 minutes; >50% face to face with patient and/or family, providing counselling regarding plans and recommendations, and in care coordination with his/her medical teams. including coordination of CC measures, review with family including her and team managing. I also spent an additional [ ] minutes counseling for advanced care planning with the patient/the patients family/the surrogate decision maker. copies to: Milla Day MD Palliative Brief Note Date of Service Mar 31, 2016 . Events over night reviewed, reviewed with team, son Long and daughter who arrived last night-Beverly Last selvin- increase in pain, agitation and probable aspiration with copious thick purulent sputum and drop in sat-family states much better after suctioning. Decision with family last noc was to change to comfort care so as to be able to treat adequately to control sx. Family pleased with level of control at this time. O: IV d/osbaldo yest and now only fluids is MS drip with prn pushes of lorazepam for agitation/anxiety. Rhonchi with breathing but appears comfortable. On high flow O2 with sat low to mid 90s HRR around 100 BP ranging 124 to 60 diastolic Priyanka Levine MD Mar 31, 2016 12:07
[2016-03-31] MEDS ORDERED: Atropine 1% 5 mL Ophthalmic Solution SL PRN (12:10)
[2016-03-31 16:18] VITALS: RESP 24
--- NOTE | 2016-03-31 16:50 | NUR ---
Beverly, Daughter, called this RN into the room. Pt is pale, no breathing noted. This RN listened for heartbeat, none heard. This RN contacted charge operator. confirmed pt has passed. notified.
--- NOTE | 2016-03-31 19:23 | PCM.DC.MEX ---
Discharge Summary Date of Service Mar 31, 2016 Dates of Hospitalization Date of Hospital Admission Mar 27, 2016 at 05:44 Date of Expiration: Mar 31, 2016 Time of Expiration: 16:54 Providers: Admitting Physician: Germán Gonzales MD Primary Care Physician: Milla Day MD Attending Physician: Germán Gonzales MD Diagnosis at Time of Acute Intraparenchymal hemorrhage in the left temporal-parietal region with associated edema with midline shift. Present on admission- Hypertensive Crisis. Present on admission, Arthrosclerosis, present on admission Mild leukocytosis Procedures XRay, CTs & MRIs PROCEDURE: CT BRAIN WITHOUT CONTRAST 03/28/16: IMPRESSION: 1. Increased left temporoparietal hemorrhage, with increased surrounding vasogenic edema. There is consequently increased mass effect upon the ventricles as described above, and increased, roughly 8 mm of rightward midline shift. 2. New intraventricular hemorrhage. 3. No change in left cerebellar low density focus, which could be further assessed by MRI, if clinically indicated. 4. No change in small left frontal parafalcine high density focus, consistent with a meningioma. 5. Findings discussed with Dr. Freeman on 03.28.16 at 1108 hrs. Dictated by: Gaurav Hinson M.D. on 03/28/2016 at 11:10 PROCEDURE: CT BRAIN WITHOUT CONTRAST 03/27/16: FINDINGS: Image quality: Excellent. CSF spaces: Basal cisterns are patent. No extra-axial fluid collections. The ventricles are symmetric in size and shape. Brain: Acute hemorrhage with surrounding edema is noted in the right temporal- parietal lobes there is mild, approximately 3 mm of xhcw-up-[id number] midline shift associated with the left temporal-parietal hematoma. Old right parietal infarct is noted. Hypodensity noted in the left cerebral hemisphere may represent artifact versus a edema related to subacute infarct. Recommend MRI of the brain when clinically feasible. There is a small, approximately 0.7 x 0.7 x 0.6 cm left frontal, parafalcine, extra-axial mass. There is cerebral volume loss for age, with resultant ventricular and sulcal prominence. There are moderate periventricular and deep white matter chronic small vessel ischemic changes. There is intracranial internal carotid artery atherosclerosis. Skull and face: Calvarium and visualized facial bones appear intact, without suspicious lesions. Sinuses: Visualized sinuses and mastoids are clear. IMPRESSION: 1. Left temporal-parietal acute hematoma with surrounding vasogenic edema. There is approximately 3 mm of efan-vi-dudta midline shift associated with the left temporal-parietal hemorrhage. 2. Hypodensity in the left cerebellar hemisphere compatible with artifact versus edema. Recommend MRI of the brain when clinically feasible. 3. Chronic, small, right parietal infarct. 4. Atherosclerosis. 5. Diffuse volume loss. 6. Periventricular and subcortical white matter chronic microvascular ischemic changes. 7. Approximately 7 mm in diameter left frontal, parafalcine extra-axial mass possibly representing a small meningioma. Recommend MRI of the brain for definitive characterization when clinically feasible. Dictated by: Megan Cunningham MD, PhD on 03/27/2016 at 9:55 Brief History Per H&P by Dr Santa: Keri is a 80yo female who was brought to [facility] abnormal neurological status. Per records, patient was was found slumped over toilet shortly around 10pm yesterday. states mentation changed with right sided weakness, thus activated EMS. can only give limited history due to himself, suspected to have dementia. A POLST form filed and copy brought to the ED which states DO NOT RESUSCITATE. On arrival, patient was mentally altered with R sided weakness, unable to follow commands. BP found to be significantly high in the 220's. CT-brain showed a left temporal/parietal acute hematoma with Tech-as-rsdwm midline shift. Patient was initially placed on nicardipine drip however, changed to labetalol. Per her wish, as filed by [facility], was to be made comfort. A call to PCP verified this. Hospital Course Keri is a 80yo female who was brought to [facility] abnormal neurological status, admitted for an intraparenchymal hemorrhage with midline shift of 8mm on second CT. Her daughter Beverly, which her and son Long have directed as the primary decision maker for Keri, arrived the hospital early on the date of (03/31/2016) and verbally expressed that she would like comfort care for Keri. 1. Acute Intraparenchymal hemorrhage in the left temporoparietal region with associated edema. Present on admission - Unfortunately her prognosis was poor. Her family decided on the morning of the date of that they would like to pursue comfort care - Airway suctioning with respiratory therapy occurred once hourly starting on - Supplemental oxygen PRN - Seizure prophylaxis with Keppra was started at admission - Once transitioned to comfort care: - Scopolamine patch was provided as she had a considerable amount of oral secretions - Morphine 1mg/h gtt was given for pain - Lorazepam 1mg q2h PRN anxiety Prior to comfort measures, blood pressure control and frequent neurological examinations were done 2. Hypertensive Crisis. Present on admission and difficult to control, - Metoprolol 20mg BID Scheduled - Clonidine patch placed on 03/30/16 when her systolic blood pressure remained 190-210mmHg with both scheduled and PRN beta alejo - Labetalol 20mg q10min IV push PRN - Systolic blood pressure goal of 150-180mmHg 3. Arthrosclerosis, present on admission - Held atorvastatin 4. Mild leukocytosis, present on admission - Likely stressed induced. Probable aspiration - Acetaminophen IV PRN for pain or fever - Ondansetron IV PRN Her children, Beverly and Long were present at the time of . Exam Test 03/27/16 04:01 03/27/16 05:25 03/28/16 09:45 03/31/16 06:30 Prothrombin Time 10.7sec (8.1-12.5) Prothromb Time International Ratio 1.00ratio Activated Partial Thromboplast Time 26.6sec (22.8-33.0) Troponin T 0.010ug/L (0.0-0.011) Hold Isaac Top Tube Received (Received) Urine Color Yellow (YELLOW) Urine Appearance Clear (CLEAR,HAZY) Urine pH 6.5 (5.0-8.0) Urine Specific [place] 1.014 (1.003-1.035) Urine Protein Negativemg/dL (NEG,TRACE) Urine Glucose (UA) Negativemg/dL (NEGATIVE) Urine Ketones Tracemg/dL (NEGATIVE) Urine Occult Blood Negative (NEGATIVE) Urine Nitrite Negative (NEGATIVE) Urine Bilirubin Negative (NEGATIVE) Urine Urobilinogen Normalmg/dL (NORMAL) Urine Leukocyte Esterase Negative (NEGATIVE) Urine RBC 0-2/hpf (0-2) Urine WBC 0-5/hpf (0-5) Urine Epithelial Cells Few/hpf (NONE-MOD) Urine Crystals None seen (NONE SEEN) Urine Bacteria None/hpf (NONE-FEW) Urine Hyaline Casts None/lpf (NONE) Urine Granular Casts None seen (NONE SEEN) Urine Waxy Casts None seen (NONE SEEN) Urine Red Blood Cell Casts None seen (NONE SEEN) Urine White Blood Cell Casts None seen (NONE SEEN) Urine Mucus None seen (None Seen) Urine Trichomonas None seen (NONE SEEN) Urine Yeast None (NONE SEEN) Urinalysis Comment None Urine Culture Reflexed Not indicated Prealbumin 13mg/dL (20-40) White Blood Count 13.9th/mm3 (3.8-10.1) Red Blood Count 4.79mil/mm3 (3.90-5.20) Hemoglobin 13.7g/dL (12.0-15.6) Hematocrit 40.4% (35.0-46.0) Mean Corpuscular Volume 84.3fL (81-100) Mean Corpuscular Hemoglobin 28.6pg (27.0-35.0) Mean Corpuscular Hemoglobin Concent 33.9% (32.0-37.0) Red Cell Distribution Width 13.8% (12.3-15.4) Platelet Count 277bil/L (150-400) Neutrophils (%) (Auto) 88.8% (40-74) Lymphocytes (%) (Auto) 4.2% (14-46) Monocytes (%) (Auto) 6.5% (4-12) Eosinophils (%) (Auto) 0% (0-5) Basophils (%) (Auto) 0.1% (0-3) Sodium Level 144mEq/L (134-144) Potassium Level 3.9mEq/L (3.5-5.2) Chloride Level 104mEq/L (97-108) Carbon Dioxide Level 22mmol/L (18-29) Blood Urea Nitrogen 31mg/dL (8-27) Creatinine 0.70mg/dL (0.57-1.00) Estimat Glomerular Filtration Rate 116mL/min (>59) Glucose Level 160mg/dL (60-99) Calcium Level 8.6mg/dL (8.5-10.1) Total Bilirubin 1.0mg/dL (0.0-1.2) Aspartate Amino Transf (AST/SGOT) 43U/L (0-50) Alanine Aminotransferase (ALT/SGPT) 58U/L (0-32) Alkaline Phosphatase 206U/L (25-165) Total Protein 6.2g/dL (6.4-8.4) Albumin 3.4g/dL (3.4-5.0) Time spent 35 minutes Attending Statement I have seen and evaluated patient at bedside in addition to directly supervising care provided by resident physician. I agree with above documentation. copies to: Milla Day MD, Rachel M DO Mar 31, 2016 19:23 Michael Nino DO Apr 01, 2016 12:09
--- NOTE | 2016-03-31 19:35 | NUR ---
Pt. off unit Patient [place] [facility] [place] staff.
== END 2016-03-31 17:54 | disposition expired | DRG 65 ==
LOC: EDBD 03:31 → EDSEX 03:31 → SED 03:31 → MPC 05:44
PROVIDERS: ADMIT Hospitalist; ATTEND Hospitalist
DX: I62.9 Nontraumatic intracranial hemorrhage, unspecified (principal); G81.91 Hemiplegia, unspecified affecting right dominant side; R40.2142 Coma scale, eyes open, spontaneous, at arrival to emergency department; R40.2212 Coma scale, best verbal response, none, at arrival to emergency department; R40.2362 Coma scale, best motor response, obeys commands, at arrival to emergency department; I16.0 Hypertensive urgency; Z66 Do not resuscitate; I67.2 Cerebral atherosclerosis; J44.9 Chronic obstructive pulmonary disease, unspecified; Z51.5 Encounter for palliative care; D72.828 Other elevated white blood cell count